=== PATIENT | female | born 1950 | race Caucasian/White ===

== ENCOUNTER → 2017-07-10 | Outpatient (CLI) | payer OTHER ==
[2017-07-10 15:41] LABS: Blood Urea Nitrogen 9 mg/dL (7-17)
--- NOTE | 2017-07-12 14:08 | MR ---
MR liver with and without contrast HISTORY: K 74.60, unspecified cirrhosis of liver Multiplanar multisequence and postcontrast images obtained through the liver following 7.5 cc Gadavis t IV. Correlation to ultrasound liver 02/16/2016 There is motion on the exam. The liver shows a nodular contour. There is mild heterogeneity of enhancement within the liver. Focus of increased enhancement present within the segment IVb washes out on more delayed images and measur es approximately 0.9 cm in size seen on axial image 71 of series 601. Anterior left lobe lesion on ax ial image 84 is subcentimeter and show some questionable washout, there is associated hyperintensity and T2-weighted sequences. Additional focus seen on axial image 96 measuring 6 to 7 mm on series 601 shows suspected washout on delayed images. Subcentimeter foci of decreased enhancement within the alba er are scattered within the liver. Veins and portal veins are patent. Extensive varices are present at the level of the gastroesophageal junction, upper abdomen posterior to the pancreas and anterior to the spleen and left kidney. There is minimal ascites. The gallbladder is contracted. IMPRESSION: 3 separate foci described above could be indicative of hepatocellular carcinoma are subce ntimeter in size. Findings compatible with cirrhosis, regenerating nodules within the liver. Suspect underlying portal hypertension. This case received internal peer review.
== END | disposition home or self-care (01) ==
LOC: RADMRIMAIN 15:10
PROVIDERS: ATTEND Internal Medicine Gastroenterology
DX: K74.60 Unspecified cirrhosis of liver (principal); Z01.812 Encounter for preprocedural laboratory examination
CPT/HCPCS: 82565; 84520; 74183; 36415; A9581

== ENCOUNTER → 2017-07-20 | Outpatient (CLI) | payer OTHER ==
[2017-07-20 14:39] LABS: HCT 36.4 % (34.0-46.0); Hypochromasia Slight; MCH 39.4 pg (25.0-35.0); MCV 119.3 fL (80.0-100.0); Macrocytosis Marked; Platelet Count 101 k/uL (150-450); RBC 3.05 m/uL (3.80-5.40); RDW 15.5 % (11.5-15.5); WBC 5.3 k/uL (3.8-10.6)
[2017-07-20 14:49] LABS: ALT 50 U/L (9-52); AST 87 U/L (14-36); Albumin 2.7 g/dL (3.5-5.0); Alkaline Phosphatase 222 U/L (38-126); Anion Gap 9 mmol/L; Bilirubin, Conjugated 0.2 mg/dL (0.0-0.3); Bilirubin, Delta 1.7 mg/dL (0.0-0.2); Bilirubin,Unconjugated 2.5 mg/dL (0.0-1.1); Blood Urea Nitrogen 9 mg/dL (7-17); Carbon Dioxide 27 mmol/L (22-30); Chloride 101 mmol/L (98-107); Glucose 100 mg/dL (74-99); Potassium 4.4 mmol/L (3.5-5.1); Sodium 137 mmol/L (137-145); Total Bilirubin 4.4 mg/dL (0.2-1.3); Total Protein 6.8 g/dL (6.3-8.2)
[2017-07-20 19:35] LABS: Iron Saturation 64.05 (12.00-45.00)
[2017-07-20 19:44] LABS: Alpha Fetoprotein, Tumor Mkr 9.2 ng/mL (0.0-7.9)
[2017-07-20 21:04] LABS: Hepatitis A Antibody IgM Non-Reactive (Non-Reactive); Hepatitis B Core IgM Non-Reactive (Non-Reactive)
== END | disposition home or self-care (01) ==
LOC: LABWHC1 13:56
PROVIDERS: ATTEND Physician Assistant
DX: F44.89 Other dissociative and conversion disorders (principal); K74.60 Unspecified cirrhosis of liver; R18.8 Other ascites
CPT/HCPCS: 36415; 80053; 80074; 82105; 82140; 82248; 82728; 83516; 83540; 83550; 85027; 86038

== ENCOUNTER 2017-08-15 08:33 | Day surgery (SDC) | payer MEDICARE, OTHER ==
[2017-08-14 11:33] VITALS: BMI 28.3
[~2017-08-15 08:33] MED LIST: LIDOCAINE 1% 20 ML VIAL (10MG/ML) FOR IV START INTRADERMA PRN; MIDAZOLAM 2 MG/2 ML VIAL IV PRN
[2017-08-15] MEDS ORDERED: LIDOCAINE 1% 20 ML VIAL (10MG/ML) FOR IV START IV ONE (09:05)
[2017-08-15] MEDS: LACTATED RINGERS 1,000 ML IV SCH ×2 (09:05→09:46)
[2017-08-15 09:06] VITALS: TEMP 97
[2017-08-15] MEDS ORDERED: GLYCOPYRROLATE 0.2 MG/ML 2 ML VIAL ONE (09:46)
[2017-08-15] MEDS ORDERED: LIDOCAINE 1% INJ 10MG/ML (20 ML MDV) ONE (09:46)
[2017-08-15] MEDS ORDERED: PROPOFOL 10 MG/ML 20 ML VIAL IV ONE (09:46)
--- NOTE | 2017-08-15 10:26 | P.PCN ---
Date of Procedure: 08/15/17 Procedure(s) Performed: Procedure: 1. Esophagogastroduodenoscopy. 2. Total colonoscopy. Preoperative diagnosis: Cirrhosis of the liver and family history of colon cancer. Postoperative diagnosis: 1. Small distal esophageal varices, small gastric varices and portal gastropathy with no evidence of bleeding or stigmata of prior bleeding. 2. Normal colon exam. Preparation: HalfLytely prep. Sedation: Was provided by anesthesia. Brief clinical history: The patient is a 67-year-old female who was evaluated in the office last month because of history of alcoholic cirrhosis of the liver. There is family history of colon cancer in her mother and she had a prior colonoscopy more than 20 years ago. No prior upper endoscopy. This evaluation is to assess for esophageal varices and colon neoplasia. Procedure: With the patient on her left lateral decubitus position and after informed consent and adequate sedation, I passed the Olympus-GIF 160 video upper endoscope through the cricopharyngeus down the esophagus. The distal esophagus showed 2 small columns of varices without stigmata of bleeding. There was no evidence of esophagitis or complicated reflux disease. The endoscope was then passed into the stomach which was insufflated with air and inspected in detail including the retroflex view in the cardia. There was prominent submucosal vessels in the cardia consistent with small-sized gastric varices with no stigmata of prior bleeding. The stomach showed diffuse evidence of portal gastropathy with mottling and erythema of the mucosa but no erosions, ulcers or bleeding. Pyloric channel, duodenal bulb, post bulbar area and descending duodenum appeared within normal limits. No biopsies or any banding of varices were indicated then the endoscope was withdrawn and I proceeded with the colonoscopy. Perianal area did not show any fissures or fistulas. There were no masses felt on digital rectal examination. The Olympus CFQ 160L video colonoscope was then inserted in the rectum in the usual fashion and advanced to the cecum. The mucosa appeared healthy. No polyps or tumors were seen or any obvious diverticular disease or bleeding. The patient tolerated the procedure well. Plan: The patient was reassured. Will plan to repeat her upper endoscopy in 2- 3 years and a colonoscopy in around 5 years. She is scheduled to be evaluated in consultation at a liver transplant center. We would keep you updated on her progress.
[2017-08-15 10:49] VITALS: BP 115/65; PULSE 86; RESP 18
== END 2017-08-15 10:56 | disposition home or self-care (01) ==
LOC: ORWHC2ENDO 08:33
DX: Z12.11 Encounter for screening for malignant neoplasm of colon (principal); K74.60 Unspecified cirrhosis of liver; I85.10 Secondary esophageal varices without bleeding; I86.4 Gastric varices; K31.9 Disease of stomach and duodenum, unspecified; Z80.0 Family history of malignant neoplasm of digestive organs; K21.9 Gastro-esophageal reflux disease without esophagitis; F17.210 Nicotine dependence, cigarettes, uncomplicated; Z79.899 Other long term (current) drug therapy
CPT/HCPCS: 43235; J2001; J2704; G0105

== ENCOUNTER 2017-10-05 08:16 | Inpatient (IN) | payer MEDICARE, OTHER ==
[2017-10-05] MEDS ORDERED: PANTOPRAZOLE 40 MG/10 ML VIAL IVP STA (08:21)
[2017-10-05] MEDS ORDERED: SODIUM CHLORIDE 0.9% 1,000 ML IV STA (08:21)
--- NOTE | 2017-10-05 08:29 | ED ---
GI Bleed HPI - General Stated complaint: vomiting blood Time Seen by Provider: 10/05/17 08:16 Source: patient, EMS, RN notes reviewed, old records reviewed - History of Present Illness Initial comments: This is a 67-year-old female history of cirrhosis from alcoholism who does currently smoke and did apparently have a recent outpatient evaluation for GI bleeding who started having nausea vomiting last night with reported coffee- ground emesis and this morning bright red blood in her emesis. She complains of some epigastric pain she had nausea that did resolve after IV Zofran given per paramedics. She complains of some weakness no chest pain she had some slight shortness of breath with it she denies any blood per rectum. No other modifying factors this time. She states she has not drank alcohol in a long time and has lately only smokes about one cigarette per day. MD complaint: coffee ground emesis, gross hematemesis - Related Data Home Medications Medication Instructions Recorded Confirmed Furosemide [Lasix] 20 mg PO BID 08/14/17 10/05/17 Multivitamins, Thera [Multivitamin 1 tab PO DAILY 08/14/17 10/05/17 (formulary)] Spironolactone [Aldactone] 25 mg PO BID 08/14/17 10/05/17 Lactulose 10 gm PO DAILY 10/05/17 10/05/17 Allergies Allergy/AdvReac Type Severity Reaction Status Date / Time No Known Allergies Allergy Verified 10/05/17 09:46 Review of Systems ROS Statement: Those systems with pertinent positive or pertinent negative responses have been documented in the HPI. ROS Other: All systems not noted in ROS Statement are negative. Past Medical History Past Medical History: GERD/Reflux, Liver Disease Additional Past Medical History / Comment(s): liver cirrhosis History of Any Multi-Drug Resistant Organisms: None Reported Past Surgical History: Hysterectomy Additional Past Surgical History / Comment(s): lasik proc caitlyn eyes Past Anesthesia/Blood Transfusion Reactions: Motion Sickness Additional Past Anesthesia/Blood Transfusion Reaction / Comment(s): vertigo Smoking Status: Current every day smoker - Past Family History Mother Family Medical History: Cancer General Exam - General Exam Comments Initial Comments: Is a well-developed well-nourished pale appearing female who is awake alert oriented 3 General appearance: alert, anxious Head exam: Present: atraumatic, normocephalic, normal inspection Eye exam: Present: normal appearance, PERRL, EOMI. Absent: scleral icterus, conjunctival injection, periorbital swelling ENT exam: Present: other (Some dark colored blood noted in the oral pharynx no definite evidence of nasal bleeding.) Neck exam: Present: normal inspection. Absent: tenderness, meningismus, lymphadenopathy Respiratory exam: Present: decreased breath sounds. Absent: respiratory distress, wheezes, rales, rhonchi, stridor Cardiovascular Exam: Present: normal rhythm, tachycardia, normal heart sounds. Absent: systolic murmur, diastolic murmur, rubs, gallop, clicks GI/Abdominal exam: Present: soft, tenderness (Mild epigastric tenderness palpation with some xiphoid tenderness no guarding or rebound), normal bowel sounds. Absent: distended, guarding, rebound, rigid Rectal exam: Present: normal rectal tone, black stool. Absent: hemorrhoids, mass, tenderness Extremities exam: Present: normal inspection, full ROM, normal capillary refill. Absent: tenderness, pedal edema, joint swelling, calf tenderness Back exam: Present: normal inspection Neurological exam: Present: alert, oriented X3, CN II-XII intact Psychiatric exam: Present: normal affect, anxious Skin exam: Present: warm, dry, intact, pallor. Absent: rash Course Vital Signs 10/05/17 10/05/17 10/05/17 08:24 08:53 09:52 Temperature 98.1 F Pulse Rate 105 H 104 H 106 H Respiratory 18 16 16 Rate Blood Pressure 144/68 137/67 144/104 O2 Sat by Pulse 97 97 97 Oximetry - Reevaluation(s) Reevaluation #1: 10/05/17 08:46 Patient did vomit some dark red blood with some clots. Rectal exam was performed with a female nurse, Swetha serrato. Reevaluation #2: 10/05/17 10:00 The patient has had more liquid black stool and did have an episode of vomiting dark blood with clots small amount of bright red material noted. Additionally further information sheet from the patient daughter's the nausea vomiting and she started 4 days ago. There was some question of exposure to Salmonella from some crackers from a local [employer] store. Medical Decision Making - Lab Data Result diagrams: 10/05/17 08:29 10/05/17 08:29 Lab Results 10/05/17 10/05/1710/05/18 Range/Units 08:29 08:29 08:29 WBC 12.8 H (3.8-10.6) k/uL RBC 2.54 L (3.80-5.40) m/uL Hgb 10.1 L (11.4-16.0) gm/dL Hct 31.0 L (34.0-46.0) % MCV 122.4 H (80.0-100.0) fL MCH 39.7 H (25.0-35.0) pg MCHC 32.5 (31.0-37.0) g/dL RDW 16.5 H (11.5-15.5) % Plt Count 112 L (150-450) k/uL Neutrophils % 85 % Lymphocytes % 7 % Monocytes % 7 % Eosinophils % 0 % Basophils % 0 % Neutrophils # 10.9 H (1.3-7.7) k/uL Lymphocytes # 0.9 L (1.0-4.8) k/uL Monocytes # 0.8 (0-1.0) k/uL Eosinophils # 0.0 (0-0.7) k/uL Basophils # 0.0 (0-0.2) k/uL Manual Slide Review Performed Hypochromasia Moderate Anisocytosis Slight Macrocytosis Marked PT (9.0-12.0) sec INR (<1.2) APTT (22.0-30.0) sec Sodium (137-145) mmol/L Potassium (3.5-5.1) mmol/L Chloride (98-107) mmol/L Carbon Dioxide (22-30) mmol/L Anion Gap mmol/L BUN (7-17) mg/dL Creatinine (0.52-1.04) mg/dL Est GFR (CKD-EPI)AfAm (>60 ml/min/1.73 sqM) Est GFR (CKD-EPI)NonAf (>60 ml/min/1.73 sqM) Glucose (74-99) mg/dL Calcium (8.4-10.2) mg/dL Magnesium (1.6-2.3) mg/dL Total Bilirubin (0.2-1.3) mg/dL AST (14-36) U/L ALT (9-52) U/L Alkaline Phosphatase (38-126) U/L Ammonia 69 H (<30) umol/L Total Creatine Kinase 142 H (30-135) U/L CK-MB (CK-2) 1.3 (0.0-2.4) ng/mL CK-MB (CK-2) Rel Index 0.9 Troponin I <0.012 (0.000-0.034) ng/mL Total Protein (6.3-8.2) g/dL Albumin (3.5-5.0) g/dL Lipase (23-300) U/L Stool Occult Blood (Negative) Blood Type Blood Type Recheck Antibody Screen Spec Expiration Date 10/05/17 10/05/17 10/05/17 Range/Units 08:29 08:29 08:29 WBC (3.8-10.6) k/uL RBC (3.80-5.40) m/uL Hgb (11.4-16.0) gm/dL Hct (34.0-46.0) % MCV (80.0-100.0) fL MCH (25.0-35.0) pg MCHC (31.0-37.0) g/dL RDW (11.5-15.5) % Plt Count (150-450) k/uL Neutrophils % % Lymphocytes % % Monocytes % % Eosinophils % % Basophils % % Neutrophils # (1.3-7.7) k/uL Lymphocytes # (1.0-4.8) k/uL Monocytes # (0-1.0) k/uL Eosinophils # (0-0.7) k/uL Basophils # (0-0.2) k/uL Manual Slide Review Hypochromasia Anisocytosis Macrocytosis PT 19.0 H (9.0-12.0) sec INR 2.1 H (<1.2) APTT 30.8 H (22.0-30.0) sec Sodium 140 (137-145) mmol/L Potassium 4.6 (3.5-5.1) mmol/L Chloride 110 H (98-107) mmol/L Carbon Dioxide 21 L (22-30) mmol/L Anion Gap 9 mmol/L BUN 22 H (7-17) mg/dL Creatinine 0.57 (0.52-1.04) mg/dL Est GFR (CKD-EPI)AfAm >90 (>60 ml/min/1.73 sqM) Est GFR (CKD-EPI)NonAf >90 (>60 ml/min/1.73 sqM) Glucose 119 H (74-99) mg/dL Calcium 7.9 L (8.4-10.2) mg/dL Magnesium 1.8 (1.6-2.3) mg/dL Total Bilirubin 5.7 H (0.2-1.3) mg/dL AST 61 H (14-36) U/L ALT 40 (9-52) U/L Alkaline Phosphatase 125 (38-126) U/L Ammonia (<30) umol/L Total Creatine Kinase (30-135) U/L CK-MB (CK-2) (0.0-2.4) ng/mL CK-MB (CK-2) Rel Index Troponin I (0.000-0.034) ng/mL Total Protein 5.6 L (6.3-8.2) g/dL Albumin 2.2 L (3.5-5.0) g/dL Lipase 64 (23-300) U/L Stool Occult Blood (Negative) Blood Type A Positive Blood Type Recheck CABO Indicated Antibody Screen NEGATIVE Spec Expiration Date 10/08/2017 - 232810/05/17 Range/Units 08:34 WBC (3.8-10.6) k/uL RBC (3.80-5.40) m/uL Hgb (11.4-16.0) gm/dL Hct (34.0-46.0) % MCV (80.0-100.0) fL MCH (25.0-35.0) pg MCHC (31.0-37.0) g/dL RDW (11.5-15.5) % Plt Count (150-450) k/uL Neutrophils % % Lymphocytes % % Monocytes % % Eosinophils % % Basophils % % Neutrophils # (1.3-7.7) k/uL Lymphocytes # (1.0-4.8) k/uL Monocytes # (0-1.0) k/uL Eosinophils # (0-0.7) k/uL Basophils # (0-0.2) k/uL Manual Slide Review Hypochromasia Anisocytosis Macrocytosis PT (9.0-12.0) sec INR (<1.2) APTT (22.0-30.0) sec Sodium (137-145) mmol/L Potassium (3.5-5.1) mmol/L Chloride (98-107) mmol/L Carbon Dioxide (22-30) mmol/L Anion Gap mmol/L BUN (7-17) mg/dL Creatinine (0.52-1.04) mg/dL Est GFR (CKD-EPI)AfAm (>60 ml/min/1.73 sqM) Est GFR (CKD-EPI)NonAf (>60 ml/min/1.73 sqM) Glucose (74-99) mg/dL Calcium (8.4-10.2) mg/dL Magnesium (1.6-2.3) mg/dL Total Bilirubin (0.2-1.3) mg/dL AST (14-36) U/L ALT (9-52) U/L Alkaline Phosphatase (38-126) U/L Ammonia (<30) umol/L Total Creatine Kinase (30-135) U/L CK-MB (CK-2) (0.0-2.4) ng/mL CK-MB (CK-2) Rel Index Troponin I (0.000-0.034) ng/mL Total Protein (6.3-8.2) g/dL Albumin (3.5-5.0) g/dL Lipase (23-300) U/L Stool Occult Blood Positive H (Negative) Blood Type Blood Type Recheck Antibody Screen Spec Expiration Date - EKG Data -: EKG Interpreted by Me EKG shows normal: sinus rhythm (Sinus tachycardia rate of 105. A full 140 QRS duration 82 QT since QTC 374/[address] T-wave configuration) Critical Care Time Critical Care Time: Yes Critical Care Time: 43 minutes of critical care time which includes initial presentation and monitoring of the EMS run as well as discussed with paramedics. History physical labs x-rays multiple re-evaluations the patient. Review of old charting including EGD and colonoscopy report. Discussion with Dr. Herring, Dr. Kelley, and Dr. Fernández. I also had extensive conversation with the patient's daughters. Disposition Clinical Impression: Acute upper GI bleed, Melena, Anemia, Cirrhosis of liver, Serum ammonia increased Disposition: ADMITTED IP TO THIS HOSP Condition: Serious Referrals: Liliana Reynolds MD [Primary Care Provider] - 1-2 days
[2017-10-05] MEDS ORDERED: ONDANSETRON 4 MG/2 ML VIAL IVP STA (08:37)
[2017-10-05 08:49] LABS: Anisocytosis Slight; Basophils % (A) 0 %; Eosinophils % (A) 0 %; HGB 10.1 gm/dL (11.4-16.0); Hypochromasia Moderate; Lymphocytes # (A) 0.9 k/uL (1.0-4.8); Lymphocytes % (A) 7 %; MCH 39.7 pg (25.0-35.0); MCHC 32.5 g/dL (31.0-37.0); MCV 122.4 fL (80.0-100.0); Macrocytosis Marked; Mean Platelet Volume 8.1; Monocytes # (A) 0.8 k/uL (0-1.0); Monocytes % (A) 7 %; Neutrophils # (A) 10.9 k/uL (1.3-7.7); Neutrophils % (A) 85 %; Platelet Count 112 k/uL (150-450); RBC 2.54 m/uL (3.80-5.40); RDW 16.5 % (11.5-15.5); WBC 12.8 k/uL (3.8-10.6)
[2017-10-05 09:00] LABS: INR 2.1 (<1.2); Partial Thromboplastin Time 30.8 sec (22.0-30.0)
[2017-10-05 09:05] LABS: ALT 40 U/L (9-52); AST 61 U/L (14-36); Albumin 2.2 g/dL (3.5-5.0); Alkaline Phosphatase 125 U/L (38-126); Anion Gap 9 mmol/L; Blood Urea Nitrogen 22 mg/dL (7-17); Calcium 7.9 mg/dL (8.4-10.2); Carbon Dioxide 21 mmol/L (22-30); Chloride 110 mmol/L (98-107); Glucose 119 mg/dL (74-99); Lipase 64 U/L (23-300); Magnesium 1.8 mg/dL (1.6-2.3); Potassium 4.6 mmol/L (3.5-5.1); Sodium 140 mmol/L (137-145); Total Bilirubin 5.7 mg/dL (0.2-1.3); Total Protein 5.6 g/dL (6.3-8.2)
[2017-10-05 09:12] LABS: Creatine Kinase 142 U/L (30-135)
--- NOTE | 2017-10-05 09:21 | XR ---
EXAMINATION TYPE: XR chest 1V portable DATE OF EXAM: 10/05/2017 COMPARISON: NONE HISTORY: Chest pain and hemoptysis. TECHNIQUE: Single frontal view of the chest is obtained. FINDINGS: Overlying EKG leads are seen There is no focal air space opacity, pleural effusion, or pneu mothorax seen. There is roughly 9 mm nodule right midlung suprahilar level projecting between the pos terior fifth and sixth ribs. The cardiac silhouette size is within normal limits. The osseous struc tures are intact. IMPRESSION: No suspicious acute pulmonary process. Advise correlation with old outside chest x-ray, consider nonemergent CT to further evaluate right midlung nodule based on correlation.
--- NOTE | 2017-10-05 09:22 | XR ---
EXAMINATION TYPE: XR abdomen 1V DATE OF EXAM: 10/05/2017 9:07 AM CLINICAL HISTORY: Hematemesis TECHNIQUE: Single upright image of the abdomen is obtained. COMPARISON: None. FINDINGS: Scattered gas is seen in non-distended small bowel loops. Gas and fecal material is seen in non-distended colon. There is no visceromegaly, pneumoperitoneum, or abnormal calcification apprecia vianey. The lung bases are clear and the osseous structures are intact. Incidentally noted there are 6 l umbar type vertebral bodies. Mild to moderate degenerative changes of the spine and femoral acetabula r joints are present. IMPRESSION: Nonobstructive bowel gas pattern.
[2017-10-05 09:25] LABS: Creatine Kinase MB 1.3 ng/mL (0.0-2.4); Troponin I <0.012 ng/mL (0.000-0.034)
[2017-10-05] MEDS ORDERED: NALOXONE 0.4 MG/ML 1 ML VIAL IV PRN (10:03)
[2017-10-05] MEDS ORDERED: MORPHINE SULFATE 4 MG/ML SYRINGE IV PRN (10:03)
[2017-10-05] MEDS ORDERED: DEXTROSE 5%-0.45% NACL 1,000 ML IV SCH (10:15)
--- NOTE | 2017-10-05 11:25 | P.CONS ---
History of Present Illness - Reason for Consult Consult date: 10/05/17 GI bleed Requesting physician: Sotero Herring - History of Present Illness 67-year-old female with a history of alcohol liver disease, esophageal gastric varices, portal gastropathy, portal hypertension, ascites, hepatic encephalopathy, presents with acute coffee-ground emesis and melena. Patient started to vomit last night multiple episodes of coffee-ground emesis and passed a black colored bowel movement this morning. History was obtained from patient and friend at bedside. Patient vehemently denies active drinking her serum alcohol level was less than 10 upon admission. Last alcohol drink was April 2017. She was recently evaluated in the GI office a few months ago in regards to have mildly elevated alpha-fetoprotein level 9.2 and abnormal liver MRI. MRI liver 07/10/2017 reported 3 separate foci within the liver possible hepatic cellular carcinoma with minimal ascites and GE junction varices. She underwent EGD colonoscopy July 2017 with findings of small distal esophageal varices, small gastric varices, portal gastropathy and a normal colon. Esophageal banding was not performed. Serologic workup for chronic liver disease has been completed most recently SMA slightly elevated at 30 but ESA and AMA negative. Ferritin 551. Iron 155. TIBC 242 and iron saturation 64%. Hepatitis screen nonreactive. Serum ammonia in June was 59 maintained on lactulose 10 g twice daily to titrate 3-4 bowel movements daily. She has been referred to [facility] hepatobiliary clinic and [facility] results are not available at time of dictation. Liver function tests have been elevated in the outpatient setting in June 2017 total bilirubin was 4.4. AST 87. ALT 50. AP 222. Hemoglobin 12 range. Admission chemistries: Hemoglobin 10.1. White count 12.8. MCV 122. Platelet 122. INR 2.1. Sodium 140. Potassium 4.6. BUN 22. Creatinine 0.5. Total bilirubin 5.7. AST 61. ALT 40. AP 125. Ammonia 69. Lipase 64. Presently she is resting in the emergency center denies abdominal pain. She is alert and oriented 3. Denies fevers. Blood pressure normotensive. Heart rate low 100s. Afebrile. Review of Systems Constitutional: Denies fever, chills, sweats, weight gain, or loss. HEENT: Negative for migraines, blurred vision or loss, earaches, drainage, tinnitus, oral mucosal lesions, dysphagia, or odynophagia. CARDIAC: Negative for chest pain, arrhythmias, or palpitation. RESPIRATORY: Negative for shortness of breath, hemoptysis, cough, or sputum production. GI: See HPI for pertinent findings. : Negative for hematuria, urgency, frequency, polyuria, or dysuria. GYNc: Denies possibility of . Negative vaginal discharge. MUSCULOSKELETAL: Negative for muscle aches, swelling, arthritis, and arthralgias. NEUROLOGIC: Negative for stroke or TIA. ENDOCRINE: Negative for thyroid problems. SKIN: Negative for rash or itching. PSYCHIATRIC: History of anxiety Past Medical History Past Medical History: GERD/Reflux, Liver Disease, Syncope Additional Past Medical History / Comment(s): Liver cirrhosis, ETOH abuse (last drank 04/2017), recent cat scan done at [facility] d/t possible small spots on liver, gastric varicies, small esophageal varicies, vertigo, syncope 10/04/17. History of Any Multi-Drug Resistant Organisms: None Reported Past Surgical History: Bladder Surgery, Hysterectomy Additional Past Surgical History / Comment(s): 08/15/17 EGD and colonoscopy, past EGD, bladder suspension, lasik proc caitlyn eyes Past Anesthesia/Blood Transfusion Reactions: Motion Sickness Additional Past Anesthesia/Blood Transfusion Reaction / Comm: vertigo Smoking Status: Light tobacco smoker - Past Family History Mother Family Medical History: Cancer Additional Family Medical History / Comment(s): Mother had colon cancer. Father History Unknown: Yes Medications and Allergies Home Medications Medication Instructions Recorded Confirmed Type Furosemide [Lasix] 20 mg PO BID 08/14/17 10/05/17 History Multivitamins, Thera [Multivitamin 1 tab PO DAILY 08/14/17 10/05/17 History (formulary)] Spironolactone [Aldactone] 25 mg PO BID 08/14/17 10/05/17 History Lactulose 10 gm PO DAILY 10/05/17 10/05/17 History Allergies Allergy/AdvReac Type Severity Reaction Status Date / Time No Known Allergies Allergy Verified 10/05/17 09:46 Physical Exam Vitals: Vital Signs Temp Pulse Resp BP Pulse Ox 10/05/17 10:27 102 H 16 136/60 97 10/05/17 09:52 106 H 16 144/104 97 10/05/17 08:53 104 H 16 137/67 97 10/05/17 08:24 98.1 F 105 H 18 144/68 97 Intake and Output 10/04/17 10/05/17 10/05/17 22:59 06:59 14:59 Other: Weight 76.204 kg Overall appearance appears slightly jaundice - Constitutional General appearance: average body habitus - EENT Sclera icterus Eyes: normal appearance ENT: normal oropharynx Ears: bilateral: normal - Neck Neck: normal ROM - Respiratory Respiratory: bilateral: CTA - Cardiovascular Heart sounds: abnormal: S1 - Gastrointestinal Nontender. No appreciable ascites. General gastrointestinal: soft - Integumentary Integumentary: normal - Psychiatric Psychiatric: A&O x's 3 Results CBC & Chem 7: 10/05/17 08:29 10/05/17 08:29 Labs: Abnormal Lab Results - Last 24 Hours (Table) 10/05/17 10/05/17 10/05/17 Range/Units 08:29 08:29 08:29 WBC 12.8 H (3.8-10.6) k/uL RBC 2.54 L (3.80-5.40) m/uL Hgb 10.1 L (11.4-16.0) gm/dL Hct 31.0 L (34.0-46.0) % MCV 122.4 H (80.0-100.0) fL MCH 39.7 H (25.0-35.0) pg RDW 16.5 H (11.5-15.5) % Plt Count 112 L (150-450) k/uL Neutrophils # 10.9 H (1.3-7.7) k/uL Lymphocytes # 0.9 L (1.0-4.8) k/uL PT (9.0-12.0) sec INR (<1.2) APTT (22.0-30.0) sec Chloride (98-107) mmol/L Carbon Dioxide (22-30) mmol/L BUN (7-17) mg/dL Glucose (74-99) mg/dL Calcium (8.4-10.2) mg/dL Total Bilirubin (0.2-1.3) mg/dL AST (14-36) U/L Ammonia 69 H (<30) umol/L Total Creatine Kinase 142 H (30-135) U/L Total Protein (6.3-8.2) g/dL Albumin (3.5-5.0) g/dL Stool Occult Blood (Negative) 10/05/17 10/05/17 10/05/17 Range/Units 08:29 08:29 08:34 WBC (3.8-10.6) k/uL RBC (3.80-5.40) m/uL Hgb (11.4-16.0) gm/dL Hct (34.0-46.0) % MCV (80.0-100.0) fL MCH (25.0-35.0) pg RDW (11.5-15.5) % Plt Count (150-450) k/uL Neutrophils # (1.3-7.7) k/uL Lymphocytes # (1.0-4.8) k/uL PT 19.0 H (9.0-12.0) sec INR 2.1 H (<1.2) APTT 30.8 H (22.0-30.0) sec Chloride 110 H (98-107) mmol/L Carbon Dioxide 21 L (22-30) mmol/L BUN 22 H (7-17) mg/dL Glucose 119 H (74-99) mg/dL Calcium 7.9 L (8.4-10.2) mg/dL Total Bilirubin 5.7 H (0.2-1.3) mg/dL AST 61 H (14-36) U/L Ammonia (<30) umol/L Total Creatine Kinase (30-135) U/L Total Protein 5.6 L (6.3-8.2) g/dL Albumin 2.2 L (3.5-5.0) g/dL Stool Occult Blood Positive H (Negative) Assessment and Plan (1) Acute upper GI bleed Narrative/Plan: Most likely a combination of portal gastropathy possible bleeding from distal esophageal varices gastric varices Current Visit: Yes Status: Acute Code(s): K92.2 - GASTROINTESTINAL HEMORRHAGE, UNSPECIFIED SNOMED Code(s): 30565355 (2) H/O ETOH abuse Current Visit: Yes Status: Acute Code(s): Z87.898 - PERSONAL HISTORY OF OTHER SPECIFIED CONDITIONS SNOMED Code(s): 225681913 (3) Portal hypertension Current Visit: Yes Status: Acute Code(s): K76.6 - PORTAL HYPERTENSION SNOMED Code(s): 57110394 (4) Portal hypertensive gastropathy Current Visit: Yes Status: Acute Code(s): K76.6 - PORTAL HYPERTENSION; K31.89 - OTHER DISEASES OF STOMACH AND DUODENUM SNOMED Code(s): 414538282 (5) Gastric varices Current Visit: Yes Status: Acute Code(s): I86.4 - GASTRIC VARICES SNOMED Code(s): 41965866 (6) Esophageal varices Current Visit: Yes Status: Acute Code(s): I85.00 - ESOPHAGEAL VARICES WITHOUT BLEEDING SNOMED Code(s): 92099500 (7) Anemia Current Visit: Yes Status: Acute Code(s): D64.9 - ANEMIA, UNSPECIFIED SNOMED Code(s): 606729860 (8) Acute blood loss anemia Current Visit: Yes Status: Acute Code(s): D62 - ACUTE POSTHEMORRHAGIC ANEMIA SNOMED Code(s): 519881932 (9) Coffee ground emesis Current Visit: Yes Status: Acute Code(s): K92.0 - HEMATEMESIS SNOMED Code( s): 471103015 (10) Melena Current Visit: Yes Status: Acute Code(s): K92.1 - MELENA SNOMED Code(s): 9495471 (11) Cirrhosis of liver Current Visit: Yes Status: Acute Code(s): K74.60 - UNSPECIFIED CIRRHOSIS OF LIVER SNOMED Code(s): 98097919 (12) Elevated AFP Current Visit: Yes Status: Acute Code(s): R77.2 - ABNORMALITY OF ALPHAFETOPROTEIN SNOMED Code(s): 221643679 (13) Elevated liver enzymes Narrative/Plan: Combination of decompensated alcohol liver disease and alcohol hepatitis Current Visit: Yes Status: Acute Code(s): R74.8 - ABNORMAL LEVELS OF OTHER SERUM ENZYMES SNOMED Code(s): 466474343 (14) Hepatic encephalopathy Current Visit: Yes Status: Acute Code(s): K72.90 - HEPATIC FAILURE, UNSPECIFIED WITHOUT COMA SNOMED Code(s): 53826278 (15) Jaundice, hepatocellular Current Visit: Yes Status: Acute Code(s): K76.89 - OTHER SPECIFIED DISEASES OF LIVER SNOMED Code(s): 63962357 (16) Abnormal MRI, liver Current Visit: Yes Status: Acute Code(s): R93.2 - ABNORMAL FINDINGS ON DX IMAGING OF LIVER AND BILIARY TRACT SNOMED Code(s): 386499454 Plan: 1. Nothing by mouth except medications. 2. Lactulose 20 g 3 times a day; serum ammonia daily. 3. Protonix 40 mg IV twice daily. 4. Sandostatin 25 mics IV; transfer to ICU for further monitoring. 5. CBC every 6 hours. Will obtain AFP. Daily CMP/PT INR. 6. Rocephin 1 g every 24HR; spontaneous bacterial peritonitis prophylaxis in the setting of a patient with known cirrhosis esophageal gastric varices with acute GI bleed. 7. Inpatient EGD discussed will be determined based on clinical course and correction of INR 1.5 or less. 8. Case was discussed with product manager service will defer to their management for vitamin K/FFP administration. 9. Presently being followed in the outpatient setting by [facility] hepatobiliary clinic. Thank you for this kind referral and the opportunity to participate in the care of your patient. This consultation was discussed with Dr. Fernández. The impression and plan of care have been directed as dictated.
[2017-10-05] MEDS: LACTULOSE 20 GM/30 ML CUP PO SCH ×2 (12:51→16:41)
[2017-10-05] MEDS: cefTRIAXone IN SWFI 1,000 MG/10 ML SYRINGE IVP SCH (12:54)
[2017-10-05] MEDS: OCTREOTIDE 200 MCG in SODIUM CHLORIDE 0.9% 100 ML IV SCH ×2 (12:55→19:44)
[2017-10-05] MEDS ORDERED: PHYTONADIONE 5 MG in SODIUM CHLORIDE 0.9% 50 ML IVPB STA (13:10)
[2017-10-05 13:47] LABS: Glucose,Whole Blood 134 mg/dL (75-99)
[2017-10-05 14:08] LABS: Anisocytosis Slight; Basophils % (A) 0 %; Eosinophils % (A) 0 %; HGB 9.6 gm/dL (11.4-16.0); Hypochromasia Moderate; Lymphocytes # (A) 1.1 k/uL (1.0-4.8); Lymphocytes % (A) 8 %; MCH 39.4 pg (25.0-35.0); MCHC 32.1 g/dL (31.0-37.0); MCV 122.5 fL (80.0-100.0); Macrocytosis Marked; Mean Platelet Volume 8.6; Monocytes % (A) 7 %; Neutrophils # (A) 12.9 k/uL (1.3-7.7); Neutrophils % (A) 85 %; Platelet Count 106 k/uL (150-450); RBC 2.45 m/uL (3.80-5.40); RDW 16.9 % (11.5-15.5); WBC 15.2 k/uL (3.8-10.6)
[2017-10-05 14:33] LABS: Target Cells Present
--- NOTE | 2017-10-05 14:38 | HP ---
HISTORY AND PHYSICAL CHIEF COMPLAINT: GI bleed. HISTORY OF PRESENT ILLNESS: This is a 67-year-old woman with a past medical history of liver cirrhosis, history of alcohol abuse, history of anxiety being followed by Dr. Reynolds in the outpatient setting, had an endoscopy in July this year by Dr. Fernández. Patient also had a family history of colon cancer. The EGD showed small distal esophageal varices, small gastric varices and portal gastropathy, no active bleeding, but currently last night the patient felt sick, patient felt nauseous and patient apparently passed out and found a lot of blood around her progressive of hematemesis. Patient also had multiple episodes subsequently and also had black stools also. Patient came to [facility] and admitted for further evaluation and treatment. The hemoglobin is 10.1 at this time. There is no history of any fever, rigors. No history of headache, loss of consciousness, seizures at this time. PAST MEDICAL HISTORY: History of GERD, history of cirrhosis of the liver, history of syncope, history of gastric and esophageal varices, bladder surgery, hysterectomy, history of anxiety. MEDICATIONS: Prior to admission include home medications are: 1. Aldactone 25 mg p.o. b.i.d. 2. Multivitamin 1 p.o. daily. 3. Lactulose 10 mg p.o. daily. 4. Lasix 20 mg p.o. b.i.d. ALLERGIES: None. FAMILY HISTORY: History of colon cancer in the mother. SOCIAL HISTORY: History of smoking. Previous alcohol as mentioned earlier. History of THC. REVIEW OF SYSTEMS: ENT: No diminished vision or hearing. CARDIOVASCULAR SYSTEM: No angina or palpitation. RESPIRATION: No cough. GI: As mentioned earlier. : No dysuria. NERVOUS SYSTEM: No numbness or weakness. ALLERGY/IMMUNOLOGY: No asthma or hayfever. MUSCULOSKELETAL: As mentioned earlier. HEMATOLOGY/ONCOLOGY: No history of anemia. ENDOCRINE: No history of diabetes or hypothyroidism. CONSTITUTIONAL: As mentioned earlier. DERMATOLOGY: Negative. RHEUMATOLOGY: Negative. PSYCHIATRY: As mentioned earlier. PHYSICAL EXAMINATION: Alert and oriented x3. Pulse is 102, blood pressure 133/60, respirations 16, temperature 98.1, pulse ox 97% on room air. HEENT: Conjunctivae normal. Oral mucosa moist. Neck is no jugular venous distention. No lymph node enlargement. CARDIOVASCULAR: S1, S2, muffled, no S3, no S4. RESPIRATORY: Breath sounds diminished in the bases, a few scattered rhonchi, no crackles. ABDOMEN: Soft, obese, nontender. No mass palpable. LEGS: No edema, no swelling. NERVOUS SYSTEM: Higher functions as mentioned earlier. Moves all 4 limbs. No focal motor or sensory deficits. LYMPHATICS: No lymph node enlargement of the neck or axillae. SKIN: No ulcer, rash, or bleeding. LABS: WBC is 12.8, hemoglobin is 10.1, platelets are 112. INR is 2.1. Total bilirubin is 5.7. Ammonia 69. ASSESSMENT: 1. Hematemesis with acute gastrointestinal bleed, upper gastrointestinal bleed, possibly from esophageal and portal varices. 2. Esophageal and gastric varices with portal gastroparesis with recent EGD. 3. Increased WBC. 4. Thrombocytopenia. 5. History of alcohol. 6. Coagulopathy secondary to chronic liver disease. 7. Hyperbilirubinemia, possible hepatitis, history of ETOH. 8. History of gastroesophageal reflux disease. 9. History of syncope. 10.History of bladder surgery. 11.History of hysterectomy. 12.History of anxiety. RECOMMENDATION AND DISCUSSION: In this 67-year-old woman who presented with multiple complex medical issues, will monitor the patient closely. Continue with the current management and symptomatic treatment. Will recommend admission to ICU and monitor closely and I would recommend 2 units of transfusion and continue to monitor. Otherwise, IV proton pump inhibitors and Gastroenterology consultation, consult Dr. Metcalf for ICU management for possible EGD. Vitamin K and monitor PT/INR closely. See orders for further details. Prognosis guarded because of multiple complex medical issues. Further recommendations to follow. Broad-spectrum IV antibiotics also will be initiated as well. MMODL / IJN: [id number] / CLAIR
[2017-10-05] MEDS ORDERED: ONDANSETRON 4 MG/2 ML VIAL IVP PRN (15:06)
--- NOTE | 2017-10-05 15:15 | P.CNPUL ---
History of Present Illness Consult date: 10/05/17 Chief complaint: Acute GI bleeding History of present illness: 67-year-old here patient with known history of alcoholic liver cirrhosis and portal hypertension and portal gastropathy and esophageal varices, presented to the hospital because of GI bleeding. The patient started having coffee-ground emesis and alone at home. She had multiple episodes of coffee-ground emesis and she was passing black tarry stools at home and subsequently the emesis became bright red. She had another emesis in the emergency department with another bowel movement. She is an alcoholic however she hasn't drank since April 2017. No abdominal distention. She is a bit lethargic yet she is awake and alert and she is following commands and answering questions and there is no signs of any significant hepatic encephalopathy for now. In the emergency department, the patient was found to have a hemoglobin of 10.1. She was coagulopathic with an INR of 2.1 with a PT of 19 and a PTT of 30.8. He was afebrile. She was normotensive. Based on her ongoing symptoms of GI bleed, the patient was started on octreotide and IV Protonix and the patient got moved to the intensive care unit. Currently she is hemodynamically stable on no pressors. Her follow-up hemoglobin showed a dropped down to 9.6. She has undergone previous EGD and colonoscopy in July 2017 and the patient was found to have small distal esophageal varices and small gastric varices and portal gastropathy. The colonoscopy was within normal limits. No is a 50 and bending was done. At the same time the patient has some abnormal densities within the liver. The patient has undergone previous MRI of the liver and the patient was found to have 3 separate foci within the liver possibly related to an underlying hepatocellular carcinoma. The patient was also found to have minimal ascites and GE junction varices. Note that the patient's ESA was negative, antimitochondrial antibody was negative, anti-smooth muscle antibody was 30. Hepatitis profile is negative. Review of Systems Constitutional: Reports fatigue, Reports lethargy Eyes: denies blurred vision, denies bulging eye, denies decreased vision Ears: deny: decreased hearing, ear discharge, earache, tinnitus Ears, nose, mouth and throat: Denies headache, Denies sore throat Cardiovascular: Reports dyspnea on exertion Respiratory: Reports dyspnea Gastrointestinal: Reports change in bowel habits, Reports coffee ground emesis, Reports jaundice, Reports melena, Reports nausea Genitourinary: Denies dysuria, Denies hematuria Musculoskeletal: Denies myalgias Musculoskeletal: bilateral: ankle swelling, absent: ankle pain, ankle stiffness Integumentary: Reports striae Neurological: Reports weakness Psychiatric: Denies anxiety, Denies depression Endocrine: Reports fatigue Hematologic/Lymphatic: Reports as per HPI Allergic/Immunologic: Reports as per HPI Past Medical History Past Medical History: GERD/Reflux, Liver Disease, Syncope Additional Past Medical History / Comment(s): Liver cirrhosis, ETOH abuse (last drank 04/2017), recent cat scan done at [facility] d/t possible small spots on liver, gastric varicies, small esophageal varicies, vertigo, syncope 10/04/17. History of Any Multi-Drug Resistant Organisms: None Reported Past Surgical History: Bladder Surgery, Hysterectomy Additional Past Surgical History / Comment(s): 08/15/17 EGD and colonoscopy, past EGD, bladder suspension, lasik proc caitlyn eyes Past Anesthesia/Blood Transfusion Reactions: Motion Sickness Additional Past Anesthesia/Blood Transfusion Reaction / Comment(s): vertigo Smoking Status: Light tobacco smoker - Past Family History Mother Family Medical History: Cancer Additional Family Medical History / Comment(s): Mother had colon cancer. Father History Unknown: Yes Medications and Allergies Home Medications Medication Instructions Recorded Confirmed Type Furosemide [Lasix] 20 mg PO BID 08/14/17 10/05/17 History Multivitamins, Thera [Multivitamin 1 tab PO DAILY 08/14/17 10/05/17 History (formulary)] Spironolactone [Aldactone] 25 mg PO BID 08/14/17 10/05/17 History Lactulose 10 gm PO DAILY 10/05/17 10/05/17 History Allergies Allergy/AdvReac Type Severity Reaction Status Date / Time No Known Allergies Allergy Verified 10/05/17 09:46 Physical Exam Vitals: Vital Signs Temp Pulse Resp BP Pulse Ox 10/05/17 13:02 115 H 16 106/56 97 10/05/17 10:27 102 H 16 136/60 97 10/05/17 09:52 106 H 16 144/104 97 10/05/17 08:53 104 H 16 137/67 97 10/05/17 08:24 98.1 F 105 H 18 144/68 97 Intake and Output 08/09/18 08/09/18 08/09/18 06:59 14:59 22:59 Other: Weight 76.204 kg Gen. appearance she is calm comfortable no acute distress. Head exam was generally normal. There was no scleral icterus or corneal arcus. Mucous membranes were moist. Neck was supple and without jugular venous distension, thyromegaly, or carotid bruits. Carotids were easily palpable bilaterally. There was no adenopathy. Lungs sounds are diminished bilaterally otherwise clear.Lungs were clear to auscultation and percussion, and with normal diaphragmatic excursion. No wheezes or rales were noted. Cardiac exam revealed the PMI to be normally situated and sized. The rhythm was regular and no extrasystoles were noted during several minutes of auscultation. The first and second heart sounds were normal and physiologic splitting of the second heart sound was noted. There were no murmurs, rubs, clicks, or gallops. Abdominal exam revealed normal bowel sounds. The abdomen was soft, non-tender, and without masses, organomegaly, or appreciable enlargement of the abdominal aorta. Examination of the extremities revealed easily palpable radial, femoral and pedal pulses. There was no cyanosis, clubbing and there is +1 pitting edema bilaterally Neurologically the patient is awake and alert. No signs of any hepatic encephalopathy at this point in time. She is following commands and answer precautions appropriately. Examination of the skin revealed no evidence of significant rashes, suspicious appearing nevi or other concerning lesions. Some rare facial telangiectasias can be seen. Results - Laboratory Findings CBC and BMP: 10/05/17 13:26 10/05/17 08:29 PT/INR, D-dimer PT 19.0 sec (9.0-12.0) H 10/05/17 08:29 INR 2.1 (<1.2) H 10/05/17 08:29 Abnormal lab findings: Abnormal Labs 10/05/17 10/05/17 10/05/17 08:29 08:29 08:29 WBC 12.8 H RBC 2.54 L Hgb 10.1 L Hct 31.0 L MCV 122.4 H MCH 39.7 H RDW 16.5 H Plt Count 112 L Neutrophils # 10.9 H Lymphocytes # 0.9 L PT INR APTT Chloride Carbon Dioxide BUN Glucose POC Glucose (mg/dL) Calcium Total Bilirubin AST Ammonia 69 H Total Creatine Kinase 142 H Total Protein Albumin Stool Occult Blood Crossmatch 10/05/17 10/05/17 10/05/17 08:29 08:29 08:29 WBC RBC Hgb Hct MCV MCH RDW Plt Count Neutrophils # Lymphocytes # PT 19.0 H INR 2.1 H APTT 30.8 H Chloride 110 H Carbon Dioxide 21 L BUN 22 H Glucose 119 H POC Glucose (mg/dL) Calcium 7.9 L Total Bilirubin 5.7 H AST 61 H Ammonia Total Creatine Kinase Total Protein 5.6 L Albumin 2.2 L Stool Occult Blood Crossmatch See Detail 10/05/17 10/05/17 10/05/17 08:34 13:26 13:44 WBC 15.2 H RBC 2.45 L Hgb 9.6 L Hct 30.0 L MCV 122.5 H MCH 39.4 H RDW 16.9 H Plt Count 106 L Neutrophils # 12.9 H Lymphocytes # PT INR APTT Chloride Carbon Dioxide BUN Glucose POC Glucose (mg/dL) 134 H Calcium Total Bilirubin AST Ammonia Total Creatine Kinase Total Protein Albumin Stool Occult Blood Positive H Crossmatch - Diagnostic Findings Chest x-ray: image reviewed Assessment and Plan Plan: Assessment 1 acute GI bleeding. The patient is likely having an upper GI bleed related to portal hypertension secondary to liver cirrhosis. Hemodynamically stable currently on a combination of a Protonix and IV Sandostatin. Hemoglobin is at 9.6. Coagulation profile is abnormal based on underlying history of liver cirrhosis. No fresh frozen was given and the patient was given only 15 mg of vitamin K. 2 liver cirrhosis, alcoholic in nature 3 portal hypertension secondary liver cirrhosis 4 portal hypertensive gastropathy along with history of esophageal varices without previous banding. Please refer to the most recent EGD that was done a few months back. 5 abnormal liver lesions with mild elevation in the alpha-fetoprotein. Rule out development of hepatocellular carcinoma 6 history of alcoholism 7 blood loss anemia and hemoglobin is down to 9.6 8 borderline thrombocytopenia 9 questionable nodular density in the right suprahilar area on the chest x-ray that is to be investigated later stage 10 smoker 11 jaundice secondary to above 12 hypoproteinemia secondary to above 13 lower extremity edema Plan Continue IV fluids wit D5 and assess at the rate of 75 mL an hour. Continue octreotide. Continue IV Protonix. Repeat hemoglobin. Recheck the PT/INR. Hold Lasix for now. Hold of the rectum. EGD probably within next 24-48 hours. Keep the patient nothing by mouth for now. Watch for any signs of hepatic encephalopathy. IV Rocephin for SBP prophylaxis. We'll continue to follow.
[2017-10-05] MEDS: PHYTONADIONE ORAL 5 MG/5 ML ORAL.SYRG PO SCH (16:16)
[2017-10-05] MEDS: DEXTROSE 5%-0.9% NACL 1,000 ML IV SCH (16:41)
[2017-10-05 20:03] LABS: Appearance,Urine Cloudy (Clear); Bilirubin,Urine Negative (Negative); Blood,Urine Small (Negative); Color,Urine Yellow; Glucose,Urine (UA) Negative (Negative); Ketones,Urine 1+ (Negative); Leukocyte Esterase,Urine Large (Negative); Mucus,Urine Rare /hpf; Nitrite,Urine Positive (Negative); Protein,Urine Trace (Negative); RBC,Urine 6 /hpf (0-5); Specific Gravity,Urine 1.018 (1.001-1.035); Squamous Epithelial Cell,Urine 4 /hpf (0-4); Urobilinogen,Urine <2.0 mg/dL (<2.0); WBC,Urine >182 /hpf (0-5)
[2017-10-05 20:22] LABS: Glucose,Whole Blood 178 mg/dL (75-99)
[2017-10-05] MEDS: PANTOPRAZOLE 40 MG/10 ML VIAL IV SCH (21:30)
[2017-10-05 23:39] LABS: Hemoglobin A1C 4.4 % (4.0-6.0)
[2017-10-06 00:04] LABS: Glucose,Whole Blood 155 mg/dL (75-99)
[2017-10-06 00:08] LABS: Anisocytosis Moderate; Basophils % (A) 0 %; Eosinophils # (A) 0.1 k/uL (0-0.7); Eosinophils % (A) 1 %; HCT 30.6 % (34.0-46.0); HGB 10.2 gm/dL (11.4-16.0); Hypochromasia Slight; Lymphocytes # (A) 2.3 k/uL (1.0-4.8); Lymphocytes % (A) 13 %; MCH 36.1 pg (25.0-35.0); MCHC 33.5 g/dL (31.0-37.0); Macrocytosis Marked; Mean Platelet Volume 8.3; Monocytes # (A) 1.5 k/uL (0-1.0); Monocytes % (A) 8 %; Neutrophils # (A) 13.9 k/uL (1.3-7.7); Neutrophils % (A) 76 %; RBC 2.83 m/uL (3.80-5.40); RDW 22.6 % (11.5-15.5); WBC 18.2 k/uL (3.8-10.6)
[2017-10-06] MEDS: LACTULOSE 20 GM/30 ML CUP PO SCH ×5 (00:14→22:12)
[2017-10-06 00:18] LABS: MCV 107.9 fL (80.0-100.0)
[2017-10-06 00:40] LABS: Platelet Count 93 k/uL (150-450); Poikilocytosis (M) Present; Target Cells Present
[2017-10-06] MEDS: INSULIN ASPART 100 UNIT/ML 1 ML 10 ML VIAL SQ SCH ×5 (02:30→20:47)
[2017-10-06] MEDS: DEXTROSE 5%-0.9% NACL 1,000 ML IV SCH ×2 (04:46→18:48)
[2017-10-06] MEDS: OCTREOTIDE 200 MCG in SODIUM CHLORIDE 0.9% 100 ML IV SCH ×2 (04:46→16:45)
[2017-10-06 04:57] LABS: Anisocytosis Moderate; HCT 32.4 % (34.0-46.0); HGB 10.4 gm/dL (11.4-16.0); MCH 35.6 pg (25.0-35.0); MCHC 32.2 g/dL (31.0-37.0); MCV 110.6 fL (80.0-100.0); Macrocytosis Marked; Mean Platelet Volume 8.3; RBC 2.93 m/uL (3.80-5.40); RDW 23.3 % (11.5-15.5); WBC 20.1 k/uL (3.8-10.6)
[2017-10-06 05:01] LABS: INR 1.8 (<1.2); Prothrombin Time 16.7 sec (9.0-12.0)
[2017-10-06 05:11] LABS: ALT 44 U/L (9-52); AST 69 U/L (14-36); Alkaline Phosphatase 110 U/L (38-126); Anion Gap 4 mmol/L; Blood Urea Nitrogen 26 mg/dL (7-17); Calcium 7.6 mg/dL (8.4-10.2); Carbon Dioxide 27 mmol/L (22-30); Chloride 109 mmol/L (98-107); Glucose 112 mg/dL (74-99); Potassium 4.1 mmol/L (3.5-5.1); Sodium 140 mmol/L (137-145); Total Bilirubin 5.1 mg/dL (0.2-1.3); Total Protein 5.2 g/dL (6.3-8.2)
[2017-10-06 05:27] LABS: Band Neutrophils % 1 %; Lymphocytes # (M) 3.82 k/uL (1.0-4.8); Monocytes # (M) 2.01 k/uL (0-1.0); Neutrophils % (M) 69 %; Nucleated Red Blood Cells 0 /100 WBC (0-0); Total Cells Counted 100
[2017-10-06 05:28] LABS: Platelet Count 94 k/uL (150-450); Poikilocytosis (M) Present; Polychromasia Present; Target Cells Present
[2017-10-06 08:05] LABS: Glucose,Whole Blood 117 mg/dL (75-99)
[2017-10-06] MEDS: cefTRIAXone IN SWFI 1,000 MG/10 ML SYRINGE IVP SCH (08:16)
[2017-10-06] MEDS: PANTOPRAZOLE 40 MG/10 ML VIAL IV SCH ×2 (08:16→20:47)
[2017-10-06] MEDS: PHYTONADIONE ORAL 5 MG/5 ML ORAL.SYRG PO SCH (09:02)
--- NOTE | 2017-10-06 09:16 | P.PN ---
Subjective Progress Note Date: 10/06/17 Principal diagnosis: Acute GI bleed 67-year-old here patient with known history of alcoholic liver cirrhosis and portal hypertension and portal gastropathy and esophageal varices, presented to the hospital because of GI bleeding. The patient started having coffee-ground emesis and alone at home. She had multiple episodes of coffee-ground emesis and she was passing black tarry stools at home and subsequently the emesis became bright red. She had another emesis in the emergency department with another bowel movement. She is an alcoholic however she hasn't drank since April 2017. No abdominal distention. She is a bit lethargic yet she is awake and alert and she is following commands and answering questions and there is no signs of any significant hepatic encephalopathy for now. In the emergency department, the patient was found to have a hemoglobin of 10.1. She was coagulopathic with an INR of 2.1 with a PT of 19 and a PTT of 30.8. He was afebrile. She was normotensive. Based on her ongoing symptoms of GI bleed, the patient was started on octreotide and IV Protonix and the patient got moved to the intensive care unit. Currently she is hemodynamically stable on no pressors. Her follow-up hemoglobin showed a dropped down to 9.6. She has undergone previous EGD and colonoscopy in July 2017 and the patient was found to have small distal esophageal varices and small gastric varices and portal gastropathy. The colonoscopy was within normal limits. No is a 50 and bending was done. At the same time the patient has some abnormal densities within the liver. The patient has undergone previous MRI of the liver and the patient was found to have 3 separate foci within the liver possibly related to an underlying hepatocellular carcinoma. The patient was also found to have minimal ascites and GE junction varices. Note that the patient's ESA was negative, antimitochondrial antibody was negative, anti-smooth muscle antibody was 30. Hepatitis profile is negative. The patient is seen again today 10/06/2017 in follow-up in the intensive care unit. She remains awake and alert in no acute distress. She denies any chest pain, palpitations, shortness of breath. She did have some dizziness while up. Systolic blood pressures in the 80s and 90s with mean arterial pressures in the 60s. No tachycardia. No tachypnea. She has had 2 small dark tarry stools last evening on yet this morning. She is status post 2 units of packed red blood cells. Hemoglobin this morning 10.4. INR 1.8. She remains on octreotide at 25 g per hour. Protonix 40 mg IV twice a day. D5.9 at 75 ML's per hour. She is nothing by mouth. The plan is for endoscopy today. Objective - Vital Signs Vital signs: Vital Signs Temp 98.3 F 10/06/17 04:00 Pulse 76 10/06/17 07:00 Resp 19 10/06/17 07:00 BP 95/52 10/06/17 07:00 Pulse Ox 94 L 10/06/17 07:00 Intake & Output 10/05/17 10/06/17 10/06/17 18:59 06:59 18:59 Intake Total 638.10 1858.246 175.2 Output Total 200 0 Balance 438.10 1858.246 175.2 Weight 76.204 kg 79 kg Intake: IV 963.6 175.2 Dextrose 5%-0.9% NaCl 1, 825 150 000 ml @ 75 mls/hr IV . [id number] [facility] Rx#:[id number] Octreotide 200 mcg In 138.6 25.2 Sodium Chloride 0.9% 100 ml @ 25 MCG/HR 12.62 mls/ hr IV .Q8H1M [facility] Rx#: [id number] Intake, IV Titration 378.10 274.646 Amount Dextrose 5%-0.45% NaCl 1, 40 000 ml @ 20 mls/hr IV . Q24H [facility] Rx#:[id number] Dextrose 5%-0.9% NaCl 1, 225 75 000 ml @ 75 mls/hr IV . [id number] [facility] Rx#:[id number] Octreotide 200 mcg In 63.10 199.646 Sodium Chloride 0.9% 100 ml @ 25 MCG/HR 12.62 mls/ hr IV .Q8H1M [facility] Rx#: [id number] Phytonadione 5 mg In 50 Sodium Chloride 0.9% 50 ml @ 100 mls/hr IVPB ONCE [facility] Rx#:[id number] Blood Product 260 620 Rc As-3 Unit 310 [id number] Rc As-3 Unit 0 310 [id number] Output: Urine 200 0 Other: # Voids 1 1 # Bowel Movements 1 - Exam Gen. appearance she is calm comfortable no acute distress. Head exam was generally normal. There was no scleral icterus or corneal arcus. Mucous membranes were moist. Neck was supple and without jugular venous distension, thyromegaly, or carotid bruits. Carotids were easily palpable bilaterally. There was no adenopathy. Lungs sounds are diminished bilaterally otherwise clear.Lungs were clear to auscultation and percussion, and with normal diaphragmatic excursion. No wheezes or rales were noted. Cardiac exam revealed the PMI to be normally situated and sized. The rhythm was regular and no extrasystoles were noted during several minutes of auscultation. The first and second heart sounds were normal and physiologic splitting of the second heart sound was noted. There were no murmurs, rubs, clicks, or gallops. Abdominal exam revealed normal bowel sounds. The abdomen was soft, non-tender, and without masses, organomegaly, or appreciable enlargement of the abdominal aorta. Examination of the extremities revealed easily palpable radial, femoral and pedal pulses. There was no cyanosis, clubbing and there is +1 pitting edema bilaterally Neurologically the patient is awake and alert. No signs of any hepatic encephalopathy at this point in time. She is following commands and answer precautions appropriately. Examination of the skin revealed no evidence of significant rashes, suspicious appearing nevi or other concerning lesions. Some rare facial telangiectasias can be seen. - Labs CBC & Chem 7: 10/06/17 04:42 10/06/17 04:42 Labs: Abnormal Lab Results - Last 24 Hours (Table) 10/05/17 10/05/17 10/05/17 Range/Units 08:29 08:29 08:29 WBC 12.8 H (3.8-10.6) k/uL RBC 2.54 L (3.80-5.40) m/uL Hgb 10.1 L (11.4-16.0) gm/dL Hct 31.0 L (34.0-46.0) % MCV 122.4 H (80.0-100.0) fL MCH 39.7 H (25.0-35.0) pg RDW 16.5 H (11.5-15.5) % Plt Count 112 L (150-450) k/uL Neutrophils # 10.9 H (1.3-7.7) k/uL Neutrophils # (Manual) (1.3-7.7) k/uL Lymphocytes # 0.9 L (1.0-4.8) k/uL Monocytes # (0-1.0) k/uL Monocytes # (Manual) (0-1.0) k/uL PT (9.0-12.0) sec INR (<1.2) Chloride (98-107) mmol/L BUN (7-17) mg/dL Glucose (74-99) mg/dL POC Glucose (mg/dL) (75-99) mg/dL Calcium (8.4-10.2) mg/dL Total Bilirubin (0.2-1.3) mg/dL AST (14-36) U/L Ammonia 69 H (<30) umol/L Total Creatine Kinase 142 H (30-135) U/L Total Protein (6.3-8.2) g/dL Albumin (3.5-5.0) g/dL Tumor Marker AFP (0.0-7.9) ng/mL Urine Appearance (Clear) Urine Protein (Negative) Urine Ketones (Negative) Urine Blood (Negative) Urine Nitrite (Negative) Ur Leukocyte Esterase (Negative) Urine RBC (0-5) /hpf Urine WBC (0-5) /hpf Urine WBC Clumps (None) /hpf Urine Mucus (None) /hpf Crossmatch 10/05/17 10/05/17 10/05/17 Range/Units 08:29 13:26 13:26 WBC 15.2 H (3.8-10.6) k/uL RBC 2.45 L (3.80-5.40) m/uL Hgb 9.6 L (11.4-16.0) gm/dL Hct 30.0 L (34.0-46.0) % MCV 122.5 H (80.0-100.0) fL MCH 39.4 H (25.0-35.0) pg RDW 16.9 H (11.5-15.5) % Plt Count 106 L (150-450) k/uL Neutrophils # 12.9 H (1.3-7.7) k/uL Neutrophils # (Manual) (1.3-7.7) k/uL Lymphocytes # (1.0-4.8) k/uL Monocytes # (0-1.0) k/uL Monocytes # (Manual) (0-1.0) k/uL PT (9.0-12.0) sec INR (<1.2) Chloride (98-107) mmol/L BUN (7-17) mg/dL Glucose (74-99) mg/dL POC Glucose (mg/dL) (75-99) mg/dL Calcium (8.4-10.2) mg/dL Total Bilirubin (0.2-1.3) mg/dL AST (14-36) U/L Ammonia (<30) umol/L Total Creatine Kinase (30-135) U/L Total Protein (6.3-8.2) g/dL Albumin (3.5-5.0) g/dL Tumor Marker AFP 8.8 H (0.0-7.9) ng/mL Urine Appearance (Clear) Urine Protein (Negative) Urine Ketones (Negative) Urine Blood (Negative) Urine Nitrite (Negative) Ur Leukocyte Esterase (Negative) Urine RBC (0-5) /hpf Urine WBC (0-5) /hpf Urine WBC Clumps (None) /hpf Urine Mucus (None) /hpf Crossmatch See Detail 10/05/17 10/05/17 10/05/17 Range/Units 13:44 17:45 20:21 WBC (3.8-10.6) k/uL RBC (3.80-5.40) m/uL Hgb (11.4-16.0) gm/dL Hct (34.0-46.0) % MCV (80.0-100.0) fL MCH (25.0-35.0) pg RDW (11.5-15.5) % Plt Count (150-450) k/uL Neutrophils # (1.3-7.7) k/uL Neutrophils # (Manual) (1.3-7.7) k/uL Lymphocytes # (1.0-4.8) k/uL Monocytes # (0-1.0) k/uL Monocytes # (Manual) (0-1.0) k/uL PT (9.0-12.0) sec INR (<1.2) Chloride (98-107) mmol/L BUN (7-17) mg/dL Glucose (74-99) mg/dL POC Glucose (mg/dL) 134 H 178 H (75-99) mg/dL Calcium (8.4-10.2) mg/dL Total Bilirubin (0.2-1.3) mg/dL AST (14-36) U/L Ammonia (<30) umol/L Total Creatine Kinase (30-135) U/L Total Protein (6.3-8.2) g/dL Albumin (3.5-5.0) g/dL Tumor Marker AFP (0.0-7.9) ng/mL Urine Appearance Cloudy H (Clear) Urine Protein Trace H (Negative) Urine Ketones 1+ H (Negative) Urine Blood Small H (Negative) Urine Nitrite Positive H (Negative) Ur Leukocyte Esterase Large H (Negative) Urine RBC 6 H (0-5) /hpf Urine WBC >182 H (0-5) /hpf Urine WBC Clumps Occasional H (None) /hpf Urine Mucus Rare H (None) /hpf Crossmatch 10/06/17 10/06/17 10/06/17 Range/Units 00:00 00:02 04:42 WBC 18.2 H 20.1 H (3.8-10.6) k/uL RBC 2.83 L 2.93 L (3.80-5.40) m/uL Hgb 10.2 L 10.4 L (11.4-16.0) gm/dL Hct 30.6 L 32.4 L (34.0-46.0) % MCV 107.9 H D 110.6 H (80.0-100.0) fL MCH 36.1 H 35.6 H (25.0-35.0) pg RDW 22.6 H 23.3 H (11.5-15.5) % Plt Count 93 L 94 L (150-450) k/uL Neutrophils # 13.9 H (1.3-7.7) k/uL Neutrophils # (Manual) 14.00 H (1.3-7.7) k/uL Lymphocytes # (1.0-4.8) k/uL Monocytes # 1.5 H (0-1.0) k/uL Monocytes # (Manual) 2.01 H (0-1.0) k/uL PT (9.0-12.0) sec INR (<1.2) Chloride (98-107) mmol/L BUN (7-17) mg/dL Glucose (74-99) mg/dL POC Glucose (mg/dL) 155 H (75-99) mg/dL Calcium (8.4-10.2) mg/dL Total Bilirubin (0.2-1.3) mg/dL AST (14-36) U/L Ammonia (<30) umol/L Total Creatine Kinase (30-135) U/L Total Protein (6.3-8.2) g/dL Albumin (3.5-5.0) g/dL Tumor Marker AFP (0.0-7.9) ng/mL Urine Appearance (Clear) Urine Protein (Negative) Urine Ketones (Negative) Urine Blood (Negative) Urine Nitrite (Negative) Ur Leukocyte Esterase (Negative) Urine RBC (0-5) /hpf Urine WBC (0-5) /hpf Urine WBC Clumps (None) /hpf Urine Mucus (None) /hpf Crossmatch 10/06/17 10/06/17 10/06/17 Range/Units 04:42 04:42 04:42 WBC (3.8-10.6) k/uL RBC (3.80-5.40) m/uL Hgb (11.4-16.0) gm/dL Hct (34.0-46.0) % MCV (80.0-100.0) fL MCH (25.0-35.0) pg RDW (11.5-15.5) % Plt Count (150-450) k/uL Neutrophils # (1.3-7.7) k/uL Neutrophils # (Manual) (1.3-7.7) k/uL Lymphocytes # (1.0-4.8) k/uL Monocytes # (0-1.0) k/uL Monocytes # (Manual) (0-1.0) k/uL PT 16.7 H (9.0-12.0) sec INR 1.8 H (<1.2) Chloride 109 H (98-107) mmol/L BUN 26 H (7-17) mg/dL Glucose 112 H (74-99) mg/dL POC Glucose (mg/dL) (75-99) mg/dL Calcium 7.6 L (8.4-10.2) mg/dL Total Bilirubin 5.1 H (0.2-1.3) mg/dL AST 69 H (14-36) U/L Ammonia 47 H (<30) umol/L Total Creatine Kinase (30-135) U/L Total Protein 5.2 L (6.3-8.2) g/dL Albumin 2.0 L (3.5-5.0) g/dL Tumor Marker AFP (0.0-7.9) ng/mL Urine Appearance (Clear) Urine Protein (Negative) Urine Ketones (Negative) Urine Blood (Negative) Urine Nitrite (Negative) Ur Leukocyte Esterase (Negative) Urine RBC (0-5) /hpf Urine WBC (0-5) /hpf Urine WBC Clumps (None) /hpf Urine Mucus (None) /hpf Crossmatch 10/06/17 Range/Units 08:03 WBC (3.8-10.6) k/uL RBC (3.80-5.40) m/uL Hgb (11.4-16.0) gm/dL Hct (34.0-46.0) % MCV (80.0-100.0) fL MCH (25.0-35.0) pg RDW (11.5-15.5) % Plt Count (150-450) k/uL Neutrophils # (1.3-7.7) k/uL Neutrophils # (Manual) (1.3-7.7) k/uL Lymphocytes # (1.0-4.8) k/uL Monocytes # (0-1.0) k/uL Monocytes # (Manual) (0-1.0) k/uL PT (9.0-12.0) sec INR (<1.2) Chloride (98-107) mmol/L BUN (7-17) mg/dL Glucose (74-99) mg/dL POC Glucose (mg/dL) 117 H (75-99) mg/dL Calcium (8.4-10.2) mg/dL Total Bilirubin (0.2-1.3) mg/dL AST (14-36) U/L Ammonia (<30) umol/L Total Creatine Kinase (30-135) U/L Total Protein (6.3-8.2) g/dL Albumin (3.5-5.0) g/dL Tumor Marker AFP (0.0-7.9) ng/mL Urine Appearance (Clear) Urine Protein (Negative) Urine Ketones (Negative) Urine Blood (Negative) Urine Nitrite (Negative) Ur Leukocyte Esterase (Negative) Urine RBC (0-5) /hpf Urine WBC (0-5) /hpf Urine WBC Clumps (None) /hpf Urine Mucus (None) /hpf Crossmatch Microbiology - Last 24 Hours (Table) 10/05/17 13:53 Urine Culture - Preliminary Urine,Voided Assessment and Plan Assessment: Assessment 1 acute GI bleeding. The patient is likely having an upper GI bleed related to portal hypertension secondary to liver cirrhosis. Hemodynamically stable currently on a combination of a Protonix and IV Sandostatin. Hemoglobin is at 10.4 Coagulation profile is abnormal based on underlying history of liver cirrhosis. No fresh frozen was given and the patient was given only 15 mg of vitamin K. INR today 1.8. 2 liver cirrhosis, alcoholic in nature 3 portal hypertension secondary liver cirrhosis 4 portal hypertensive gastropathy along with history of esophageal varices without previous banding. Please refer to the most recent EGD that was done a few months back. 5 abnormal liver lesions with mild elevation in the alpha-fetoprotein. Rule out development of hepatocellular carcinoma 6 history of alcoholism 7 blood loss anemia and hemoglobin up to 10.4. Status post 2 units of packed red blood cells. 8 borderline thrombocytopenia 9 questionable nodular density in the right suprahilar area on the chest x-ray that is to be investigated later stage 10 smoker 11 jaundice secondary to above 12 hypoproteinemia secondary to above 13 lower extremity edema Plan: The patient was seen and evaluated by Dr. Kelley. The plan is for is for EGD later today. She'll continue on octreotide and Protonix for now. She remains nothing by mouth. Hemoglobin currently stable at 10.4. INR 1.8. Possibly transfer out of the intensive care unit later today after EGD depending on the findings. We'll continue to follow make further recommendations based on her clinical status. I, the cosigning physician, performed a history & physical examination of the patient. Lungs sounds are clear. Maintaining good O2 saturations in the 90s on room air. I discussed the assessment and plan of care with my nurse practitioner, Ana Berumen. I attest to the above note as dictated by her.
--- NOTE | 2017-10-06 11:18 | P.PN ---
Subjective Progress Note Date: 10/06/17 Principal diagnosis: GI bleed Few black colored bowel movements this morning. Denies abdominal pain. No emesis. INR 1.8. Hemoglobin 10.4. Platelet 94,000. BUN 26 per creatinine 0.6. AFP 8.8. Ammonia improved 47. Objective - Vital Signs Vital signs: Vital Signs Temp 98.4 F 10/06/17 08:00 Pulse 59 L 10/06/17 10:00 Resp 15 10/06/17 10:00 BP 85/40 10/06/17 10:00 Pulse Ox 94 L 10/06/17 10:00 Intake & Output 10/05/17 10/06/17 10/06/17 18:59 06:59 18:59 Intake Total 638.10 1858.246 350.4 Output Total 200 0 Balance 438.10 1858.246 350.4 Weight 76.204 kg 79 kg Intake: IV 963.6 350.4 Dextrose 5%-0.9% NaCl 1, 825 300 000 ml @ 75 mls/hr IV . [id number] [facility] Rx#:[id number] Octreotide 200 mcg In 138.6 50.4 Sodium Chloride 0.9% 100 ml @ 25 MCG/HR 12.62 mls/ hr IV .Q8H1M [facility] Rx#: [id number] Intake, IV Titration 378.10 274.646 Amount Dextrose 5%-0.45% NaCl 1, 40 000 ml @ 20 mls/hr IV . Q24H [facility] Rx#:[id number] Dextrose 5%-0.9% NaCl 1, 225 75 000 ml @ 75 mls/hr IV . [id number] [facility] Rx#:[id number] Octreotide 200 mcg In 63.10 199.646 Sodium Chloride 0.9% 100 ml @ 25 MCG/HR 12.62 mls/ hr IV .Q8H1M [facility] Rx#: [id number] Phytonadione 5 mg In 50 Sodium Chloride 0.9% 50 ml @ 100 mls/hr IVPB ONCE [facility] Rx#:[id number] Blood Product 260 620 Rc As-3 Unit 310 [id number] Rc As-3 Unit 0 310 [id number] Output: Urine 200 0 Other: # Voids 1 1 1 # Bowel Movements 1 - Exam General appearance: The patient is alert, oriented, in no acute distress. HET: Head is normocephalic and atraumatic. Pupils are equal and reactive. Oropharynx is clear without lesions. Neck: Supple without lymphadenopathy. Trachea midline. Heart: S1 S2. Regular rate and rhythm. Lungs: No crackles or wheezes are heard. Abdomen: Soft, nontender, nondistended with bowel sounds. No peritoneal signs. No palpable organomegaly or masses. Extremities: Normal skin color and turgor. No cyanosis, rash, ulceration, clubbing, or edema. Radial and pedal pulses are 2/4 bilaterally. Neurological: No focal deficits. Strength and sensation are grossly intact. - Labs CBC & Chem 7: 10/06/17 04:42 10/06/17 04:42 Labs: Abnormal Lab Results - Last 24 Hours (Table) 10/05/17 10/05/17 10/05/17 Range/Units 08:29 13:26 13:26 WBC 15.2 H (3.8-10.6) k/uL RBC 2.45 L (3.80-5.40) m/uL Hgb 9.6 L (11.4-16.0) gm/dL Hct 30.0 L (34.0-46.0) % MCV 122.5 H (80.0-100.0) fL MCH 39.4 H (25.0-35.0) pg RDW 16.9 H (11.5-15.5) % Plt Count 106 L (150-450) k/uL Neutrophils # 12.9 H (1.3-7.7) k/uL Neutrophils # (Manual) (1.3-7.7) k/uL Monocytes # (0-1.0) k/uL Monocytes # (Manual) (0-1.0) k/uL PT (9.0-12.0) sec INR (<1.2) Chloride (98-107) mmol/L BUN (7-17) mg/dL Glucose (74-99) mg/dL POC Glucose (mg/dL) (75-99) mg/dL Calcium (8.4-10.2) mg/dL Total Bilirubin (0.2-1.3) mg/dL AST (14-36) U/L Ammonia (<30) umol/L Total Protein (6.3-8.2) g/dL Albumin (3.5-5.0) g/dL Tumor Marker AFP 8.8 H (0.0-7.9) ng/mL Urine Appearance (Clear) Urine Protein (Negative) Urine Ketones (Negative) Urine Blood (Negative) Urine Nitrite (Negative) Ur Leukocyte Esterase (Negative) Urine RBC (0-5) /hpf Urine WBC (0-5) /hpf Urine WBC Clumps (None) /hpf Urine Mucus (None) /hpf Crossmatch See Detail 10/05/17 10/05/17 10/05/17 Range/Units 13:44 17:45 20:21 WBC (3.8-10.6) k/uL RBC (3.80-5.40) m/uL Hgb (11.4-16.0) gm/dL Hct (34.0-46.0) % MCV (80.0-100.0) fL MCH (25.0-35.0) pg RDW (11.5-15.5) % Plt Count (150-450) k/uL Neutrophils # (1.3-7.7) k/uL Neutrophils # (Manual) (1.3-7.7) k/uL Monocytes # (0-1.0) k/uL Monocytes # (Manual) (0-1.0) k/uL PT (9.0-12.0) sec INR (<1.2) Chloride (98-107) mmol/L BUN (7-17) mg/dL Glucose (74-99) mg/dL POC Glucose (mg/dL) 134 H 178 H (75-99) mg/dL Calcium (8.4-10.2) mg/dL Total Bilirubin (0.2-1.3) mg/dL AST (14-36) U/L Ammonia (<30) umol/L Total Protein (6.3-8.2) g/dL Albumin (3.5-5.0) g/dL Tumor Marker AFP (0.0-7.9) ng/mL Urine Appearance Cloudy H (Clear) Urine Protein Trace H (Negative) Urine Ketones 1+ H (Negative) Urine Blood Small H (Negative) Urine Nitrite Positive H (Negative) Ur Leukocyte Esterase Large H (Negative) Urine RBC 6 H (0-5) /hpf Urine WBC >182 H (0-5) /hpf Urine WBC Clumps Occasional H (None) /hpf Urine Mucus Rare H (None) /hpf Crossmatch 10/06/17 10/06/17 10/06/17 Range/Units 00:00 00:02 04:42 WBC 18.2 H 20.1 H (3.8-10.6) k/uL RBC 2.83 L 2.93 L (3.80-5.40) m/uL Hgb 10.2 L 10.4 L (11.4-16.0) gm/dL Hct 30.6 L 32.4 L (34.0-46.0) % MCV 107.9 H D 110.6 H (80.0-100.0) fL MCH 36.1 H 35.6 H (25.0-35.0) pg RDW 22.6 H 23.3 H (11.5-15.5) % Plt Count 93 L 94 L (150-450) k/uL Neutrophils # 13.9 H (1.3-7.7) k/uL Neutrophils # (Manual) 14.00 H (1.3-7.7) k/uL Monocytes # 1.5 H (0-1.0) k/uL Monocytes # (Manual) 2.01 H (0-1.0) k/uL PT (9.0-12.0) sec INR (<1.2) Chloride (98-107) mmol/L BUN (7-17) mg/dL Glucose (74-99) mg/dL POC Glucose (mg/dL) 155 H (75-99) mg/dL Calcium (8.4-10.2) mg/dL Total Bilirubin (0.2-1.3) mg/dL AST (14-36) U/L Ammonia (<30) umol/L Total Protein (6.3-8.2) g/dL Albumin (3.5-5.0) g/dL Tumor Marker AFP (0.0-7.9) ng/mL Urine Appearance (Clear) Urine Protein (Negative) Urine Ketones (Negative) Urine Blood (Negative) Urine Nitrite (Negative) Ur Leukocyte Esterase (Negative) Urine RBC (0-5) /hpf Urine WBC (0-5) /hpf Urine WBC Clumps (None) /hpf Urine Mucus (None) /hpf Crossmatch 08/10/18 08/10/18 08/10/18 Range/Units 04:42 04:42 04:42 WBC (3.8-10.6) k/uL RBC (3.80-5.40) m/uL Hgb (11.4-16.0) gm/dL Hct (34.0-46.0) % MCV (80.0-100.0) fL MCH (25.0-35.0) pg RDW (11.5-15.5) % Plt Count (150-450) k/uL Neutrophils # (1.3-7.7) k/uL Neutrophils # (Manual) (1.3-7.7) k/uL Monocytes # (0-1.0) k/uL Monocytes # (Manual) (0-1.0) k/uL PT 16.7 H (9.0-12.0) sec INR 1.8 H (<1.2) Chloride 109 H (98-107) mmol/L BUN 26 H (7-17) mg/dL Glucose 112 H (74-99) mg/dL POC Glucose (mg/dL) (75-99) mg/dL Calcium 7.6 L (8.4-10.2) mg/dL Total Bilirubin 5.1 H (0.2-1.3) mg/dL AST 69 H (14-36) U/L Ammonia 47 H (<30) umol/L Total Protein 5.2 L (6.3-8.2) g/dL Albumin 2.0 L (3.5-5.0) g/dL Tumor Marker AFP (0.0-7.9) ng/mL Urine Appearance (Clear) Urine Protein (Negative) Urine Ketones (Negative) Urine Blood (Negative) Urine Nitrite (Negative) Ur Leukocyte Esterase (Negative) Urine RBC (0-5) /hpf Urine WBC (0-5) /hpf Urine WBC Clumps (None) /hpf Urine Mucus (None) /hpf Crossmatch 10/06/17 Range/Units 08:03 WBC (3.8-10.6) k/uL RBC (3.80-5.40) m/uL Hgb (11.4-16.0) gm/dL Hct (34.0-46.0) % MCV (80.0-100.0) fL MCH (25.0-35.0) pg RDW (11.5-15.5) % Plt Count (150-450) k/uL Neutrophils # (1.3-7.7) k/uL Neutrophils # (Manual) (1.3-7.7) k/uL Monocytes # (0-1.0) k/uL Monocytes # (Manual) (0-1.0) k/uL PT (9.0-12.0) sec INR (<1.2) Chloride (98-107) mmol/L BUN (7-17) mg/dL Glucose (74-99) mg/dL POC Glucose (mg/dL) 117 H (75-99) mg/dL Calcium (8.4-10.2) mg/dL Total Bilirubin (0.2-1.3) mg/dL AST (14-36) U/L Ammonia (<30) umol/L Total Protein (6.3-8.2) g/dL Albumin (3.5-5.0) g/dL Tumor Marker AFP (0.0-7.9) ng/mL Urine Appearance (Clear) Urine Protein (Negative) Urine Ketones (Negative) Urine Blood (Negative) Urine Nitrite (Negative) Ur Leukocyte Esterase (Negative) Urine RBC (0-5) /hpf Urine WBC (0-5) /hpf Urine WBC Clumps (None) /hpf Urine Mucus (None) /hpf Crossmatch Microbiology - Last 24 Hours (Table) 10/05/17 13:53 Urine Culture - Preliminary Urine,Voided Assessment and Plan (1) Acute upper GI bleed Narrative/Plan: Most likely a combination of portal gastropathy possible bleeding from distal esophageal varices gastric varices Current Visit: Yes Status: Acute Code(s): K92.2 - GASTROINTESTINAL HEMORRHAGE, UNSPECIFIED SNOMED Code(s): 54976389 (2) H/O ETOH abuse Current Visit: Yes Status: Acute Code(s): Z87.898 - PERSONAL HISTORY OF OTHER SPECIFIED CONDITIONS SNOMED Code(s): 131957014 (3) Portal hypertension Current Visit: Yes Status: Acute Code(s): K76.6 - PORTAL HYPERTENSION SNOMED Code(s): 16613910 (4) Portal hypertensive gastropathy Current Visit: Yes Status: Acute Code(s): K76.6 - PORTAL HYPERTENSION; K31.89 - OTHER DISEASES OF STOMACH AND DUODENUM SNOMED Code(s): 746390989 (5) Gastric varices Current Visit: Yes Status: Acute Code(s): I86.4 - GASTRIC VARICES SNOMED Code(s): 28059629 (6) Esophageal varices Current Visit: Yes Status: Acute Code(s): I85.00 - ESOPHAGEAL VARICES WITHOUT BLEEDING SNOMED Code(s): 77035268 (7) Anemia Current Visit: Yes Status: Acute Code(s): D64.9 - ANEMIA, UNSPECIFIED SNOMED Code(s): 427103562 (8) Acute blood loss anemia Current Visit: Yes Status: Acute Code(s): D62 - ACUTE POSTHEMORRHAGIC ANEMIA SNOMED Code(s): 838621767 (9) Coffee ground emesis Current Visit: Yes Status: Acute Code(s): K92.0 - HEMATEMESIS SNOMED Code( s): 171666318 (10) Melena Current Visit: Yes Status: Acute Code(s): K92.1 - MELENA SNOMED Code(s): 3842383 (11) Cirrhosis of liver Current Visit: Yes Status: Acute Code(s): K74.60 - UNSPECIFIED CIRRHOSIS OF LIVER SNOMED Code(s): 07611097 (12) Elevated AFP Current Visit: Yes Status: Acute Code(s): R77.2 - ABNORMALITY OF ALPHAFETOPROTEIN SNOMED Code(s): 674762677 (13) Elevated liver enzymes Current Visit: Yes Status: Acute Code(s): R74.8 - ABNORMAL LEVELS OF OTHER SERUM ENZYMES SNOMED Code(s): 103901594 (14) Hepatic encephalopathy Current Visit: Yes Status: Acute Code(s): K72.90 - HEPATIC FAILURE, UNSPECIFIED WITHOUT COMA SNOMED Code(s): 89289019 (15) Jaundice, hepatocellular Current Visit: Yes Status: Resolved Code(s): K76.89 - OTHER SPECIFIED DISEASES OF LIVER SNOMED Code(s): 25151220 (16) Abnormal MRI, liver Current Visit: Yes Status: Acute Code(s): R93.2 - ABNORMAL FINDINGS ON DX IMAGING OF LIVER AND BILIARY TRACT SNOMED Code(s): 894233604 (17) Coagulopathy Current Visit: Yes Status: Acute Code(s): D68.9 - COAGULATION DEFECT, UNSPECIFIED SNOMED Code(s): 35566503 Plan: 1. Continue Protonix Rocephin lactulose and Sandostatin. EGD evaluation this afternoon. We'll give 2 units of FFP prior to EGD for INR 1.9. CBC monitoring. We'll continue to follow. The roll former has discussed the risks, benefits and alternative therapies for the above-mentioned procedure and for both sedation/analgesia as well as necessary blood product administration, if indicated, as they pertain to this patient. The patient has indicated understanding and acceptance of the risks and procedures discussed. Assessment and plan a care discussed with Dr. Fernández
[2017-10-06 12:59] LABS: Anisocytosis Moderate; Basophils # (A) 0.1 k/uL (0-0.2); Basophils % (A) 1 %; Eosinophils # (A) 0.3 k/uL (0-0.7); Eosinophils % (A) 2 %; HCT 31.1 % (34.0-46.0); HGB 10.2 gm/dL (11.4-16.0); Hypochromasia Slight; Lymphocytes % (A) 20 %; MCHC 32.7 g/dL (31.0-37.0); Macrocytosis Marked; Mean Platelet Volume 8.2; Monocytes # (A) 1.3 k/uL (0-1.0); Monocytes % (A) 9 %; Neutrophils # (A) 9.8 k/uL (1.3-7.7); Neutrophils % (A) 66 %; Poikilocytosis Slight; RBC 2.83 m/uL (3.80-5.40); RDW 22.8 % (11.5-15.5); WBC 14.9 k/uL (3.8-10.6)
[2017-10-06 13:00] LABS: Platelet Count 76 k/uL (150-450)
[2017-10-06 13:35] LABS: Polychromasia Present; Target Cells Present
[2017-10-06 14:52] LABS: Glucose,Whole Blood 109 mg/dL (75-99)
[2017-10-06] MEDS ORDERED: IV FLUID CONTINUATION 1,000 ML IV ONE (15:40)
[2017-10-06] MEDS ORDERED: LIDOCAINE 1% INJ 10MG/ML (20 ML MDV) ONE ×2 (16:06)
[2017-10-06] MEDS ORDERED: KETAMINE 10 MG/ML 20 ML VIAL ONE ×2 (16:06)
[2017-10-06] MEDS ORDERED: PROPOFOL 10 MG/ML 20 ML VIAL IV ONE ×2 (16:06)
--- NOTE | 2017-10-06 16:41 | P.PCN ---
Date of Procedure: 10/06/17 Procedure(s) Performed: Procedure: 1. Esophagogastroduodenoscopy. Preoperative diagnosis: Cirrhosis of the liver and history of GI bleeding. Postoperative diagnosis: 1. Small distal esophageal varices, small gastric varices and portal gastropathy with no evidence of bleeding or stigmata of prior bleeding. Preparation: HalfLytely prep. Sedation: Was provided by anesthesia. Clinical history: The patient is a 67-year-old female with a history of alcohol liver disease, esophageal/gastric varices, portal gastropathy, portal hypertension, ascites, hepatic encephalopathy, presents with acute coffee- ground emesis and melena. Patient started to vomit the night prior to admission with multiple episodes of coffee-ground emesis and passed a black colored bowel movement the morning of. Patient denies active drinking, and her serum alcohol level was less than 10 upon admission. Last alcohol drink was April 2017. She was recently evaluated in the GI office a few months ago in regards to have mildly elevated alpha-fetoprotein level 9.2 and abnormal liver MRI. MRI liver reported 3 separate foci within the liver possible hepatic cellular carcinoma with minimal ascites and GE junction varices. She underwent EGD and colonoscopy by myself in July 2017 with findings of small distal esophageal varices, small gastric varices, portal gastropathy and a normal colon. Esophageal banding was not performed. Serologic workup for chronic liver disease has been completed most recently SMA slightly elevated at 30 but ESA and AMA negative. Ferritin 551. Iron 155. TIBC 242 and iron saturation 64%. Hepatitis screen nonreactive. Serum ammonia in June was 59 maintained on lactulose 10 g twice daily to titrate 3-4 bowel movements daily. She has been referred to [facility] hepatobiliary clinic and saw Dr. Red and a CT abdomen about a week ago at [facility]. Liver function tests have been elevated in the outpatient setting in June 2017 total bilirubin was 4.4. AST 87. ALT 50. AP 222. Hemoglobin 12 range. Labs this admission showed Hemoglobin 10.1. White count 12.8. MCV 122. Platelet 122. INR 2.1. Sodium 140. Potassium 4.6. BUN 22. Creatinine 0.5. Total bilirubin 5.7. AST 61. ALT 40. AP 125. Ammonia 69. Lipase 64. Other details are summarized in the history and physical and dictated consultations and progress notes. Procedure: With the patient on her left lateral decubitus position and after informed consent and adequate sedation, I passed the Olympus-GIF 160 video upper endoscope through the cricopharyngeus down the esophagus. The distal esophagus showed 2 small columns of varices without stigmata of bleeding. There was no evidence of esophagitis or complicated reflux disease. The endoscope was then passed into the stomach which was insufflated with air and inspected in detail including the retroflex view in the cardia. There was prominent submucosal vessels in the cardia consistent with small-sized gastric varices with no stigmata of prior bleeding. The stomach showed diffuse evidence of portal gastropathy with mottling and erythema of the mucosa but no erosions, ulcers or bleeding. Pyloric channel, duodenal bulb, post bulbar area and descending duodenum appeared within normal limits. No biopsies or any banding of varices were indicated then the endoscope was withdrawn. The patient tolerated the procedure well. Plan: The patient was reassured and I discussed with her family. This likely that she had a mucosal tear secondary to her dry heaving in the absence of any stigmata of bleeding and the size of her gastric and esophageal varices. Bleeding from gastric varices and portal gastropathy should be kept in mind. Will allow diet as tolerated and further plans will be made based on her course. We will review her computed tomography scan and make sure she continue with her follow-up at the hepatology clinic.
[2017-10-06 18:58] LABS: Glucose,Whole Blood 208 mg/dL (75-99)
[2017-10-06 20:48] LABS: Glucose,Whole Blood 156 mg/dL (75-99)
[2017-10-07 01:03] LABS: Glucose,Whole Blood 89 mg/dL (75-99)
[2017-10-07] MEDS: INSULIN ASPART 100 UNIT/ML 1 ML 10 ML VIAL SQ SCH ×5 (02:02→21:15)
[2017-10-07 07:08] LABS: Anisocytosis Moderate; Basophils # (A) 0.1 k/uL (0-0.2); Basophils % (A) 1 %; Eosinophils # (A) 0.3 k/uL (0-0.7); Eosinophils % (A) 5 %; HCT 27.5 % (34.0-46.0); Hypochromasia Slight; Lymphocytes # (A) 1.7 k/uL (1.0-4.8); Lymphocytes % (A) 25 %; MCH 36.9 pg (25.0-35.0); MCHC 32.8 g/dL (31.0-37.0); MCV 112.5 fL (80.0-100.0); Macrocytosis Marked; Mean Platelet Volume 7.6; Monocytes # (A) 0.8 k/uL (0-1.0); Monocytes % (A) 12 %; Neutrophils # (A) 3.8 k/uL (1.3-7.7); Neutrophils % (A) 54 %; RBC 2.44 m/uL (3.80-5.40); RDW 22.8 % (11.5-15.5); WBC 7.1 k/uL (3.8-10.6)
[2017-10-07 07:10] LABS: INR 1.6 (<1.2); Prothrombin Time 15.1 sec (9.0-12.0)
[2017-10-07 07:11] LABS: Platelet Count 76 k/uL (150-450)
[2017-10-07 07:16] LABS: ALT 50 U/L (9-52); AST 88 U/L (14-36); Albumin 1.9 g/dL (3.5-5.0); Alkaline Phosphatase 101 U/L (38-126); Anion Gap 0 mmol/L; Blood Urea Nitrogen 16 mg/dL (7-17); Calcium 7.3 mg/dL (8.4-10.2); Carbon Dioxide 29 mmol/L (22-30); Chloride 110 mmol/L (98-107); Glucose 93 mg/dL (74-99); Potassium 3.9 mmol/L (3.5-5.1); Sodium 139 mmol/L (137-145); Total Bilirubin 3.7 mg/dL (0.2-1.3); Total Protein 4.8 g/dL (6.3-8.2)
[2017-10-07 07:18] LABS: Glucose,Whole Blood 93 mg/dL (75-99)
[2017-10-07] MEDS: DEXTROSE 5%-0.9% NACL 1,000 ML IV SCH (07:36)
[2017-10-07] MEDS: cefTRIAXone IN SWFI 1,000 MG/10 ML SYRINGE IVP SCH (08:46)
[2017-10-07] MEDS: LACTULOSE 20 GM/30 ML CUP PO SCH ×3 (08:48→21:11)
[2017-10-07] MEDS: PANTOPRAZOLE 40 MG/10 ML VIAL IV SCH ×2 (08:49→21:11)
[2017-10-07] MEDS: PHYTONADIONE ORAL 5 MG/5 ML ORAL.SYRG PO SCH (09:24)
--- NOTE | 2017-10-07 09:37 | PN ---
PROGRESS NOTE DATE OF SERVICE: 10/07/2017 This 67-year-old woman was admitted with acute GI bleed as well as significant acute blood-loss anemia, had 2 unit transfusions. The patient was monitored in ICU. The patient underwent endoscopy by Dr. Fernández, which showed small , small gastric varices and portal gastropathy with no evidence of active bleeding or stigmata of prior bleeding. The patient has had with dry heaving and the patient has been closely monitored at this time. There is no history of fever, rigors. No history of headache, loss of consciousness or seizures. PAST MEDICAL HISTORY: Reviewed. REVIEW OF SYSTEMS: CARDIOVASCULAR: No angina. RESPIRATORY: As mentioned earlier. GI: As mentioned earlier. : No dysuria. NERVOUS SYSTEM: No numbness or weakness. CURRENT MEDICATIONS: Reviewed and include 1. Rocephin 1 g daily. 2. NovoLog daily. 3. Cephulac 20 mg. 4. Morphine sulfate. 5. Narcan. 6. Zofran. 7. Protonix. 8. Vitamin K. PHYSICAL EXAM: Patient is alert, oriented x3. Pulse 78, blood pressure 90/52, respiration 18, temperature 97.2, pulse ox 93% on room air. HEENT: Conjunctivae normal. Oral mucosa moist. NECK: No jugular venous distention. No carotid bruit. No lymph node enlargement. CARDIOVASCULAR: S1, S2. RESPIRATORY: Breath sounds diminished in the bases. A few rhonchi, no crackles. ABDOMEN: Soft, nontender. LEGS: No edema. NERVOUS SYSTEM: No focal deficits. LABS: WBC 18.4, hemoglobin 10.2, and INR is 1.8. Glucose 158 and albumin is 2. UA noted. The urine culture stool OP is positive. Urine culture negative so far. ASSESSMENT: 1. Acute upper gastrointestinal bleeding with possible bleeding from mucosal tear or from esophageal portal varices. 2. Status post EGD. 3. Portal gastropathy in the EGD. 4. Increased WBC. 5. Thrombocytopenia. 6. Urinary tract infection. 7. History of ETOH. 8. Coagulopathy secondary to chronic liver disease secondary to alcohol. 9. , possibly acute hepatitis, possibly secondary to ETOH. 10.History of gastroesophageal reflux disease. 11.History of syncope. 12.Bladder surgery. 13.History of hysterectomy. 14.History of anxiety. RECOMMENDATIONS AND DISCUSSION: I recommend to continue current management and symptomatic treatment. Continue with monitor hemoglobin closely. Proton pump inhibitors. Vitamin K. Empiric antibiotics. Repeat labs in the morning. Advance diet per Gastroenterology. Guarded prognosis because of multiple complex medical issues. Further recommendations to follow. MMODL / IJN: [id number] / MTDSocrates
[2017-10-07 12:01] LABS: Glucose,Whole Blood 113 mg/dL (75-99)
--- NOTE | 2017-10-07 12:19 | P.PN ---
Subjective Progress Note Date: 10/07/17 67-year-old here patient with known history of alcoholic liver cirrhosis and portal hypertension and portal gastropathy and esophageal varices, presented to the hospital because of GI bleeding. The patient started having coffee-ground emesis and alone at home. She had multiple episodes of coffee-ground emesis and she was passing black tarry stools at home and subsequently the emesis became bright red. She had another emesis in the emergency department with another bowel movement. She is an alcoholic however she hasn't drank since April 2017. No abdominal distention. She is a bit lethargic yet she is awake and alert and she is following commands and answering questions and there is no signs of any significant hepatic encephalopathy for now. In the emergency department, the patient was found to have a hemoglobin of 10.1. She was coagulopathic with an INR of 2.1 with a PT of 19 and a PTT of 30.8. He was afebrile. She was normotensive. Based on her ongoing symptoms of GI bleed, the patient was started on octreotide and IV Protonix and the patient got moved to the intensive care unit. Currently she is hemodynamically stable on no pressors. Her follow-up hemoglobin showed a dropped down to 9.6. She has undergone previous EGD and colonoscopy in July 2017 and the patient was found to have small distal esophageal varices and small gastric varices and portal gastropathy. The colonoscopy was within normal limits. No is a 50 and bending was done. At the same time the patient has some abnormal densities within the liver. The patient has undergone previous MRI of the liver and the patient was found to have 3 separate foci within the liver possibly related to an underlying hepatocellular carcinoma. The patient was also found to have minimal ascites and GE junction varices. Note that the patient's ESA was negative, antimitochondrial antibody was negative, anti-smooth muscle antibody was 30. Hepatitis profile is negative. The patient is seen again today 10/06/2017 in follow-up in the intensive care unit. She remains awake and alert in no acute distress. She denies any chest pain, palpitations, shortness of breath. She did have some dizziness while up. Systolic blood pressures in the 80s and 90s with mean arterial pressures in the 60s. No tachycardia. No tachypnea. She has had 2 small dark tarry stools last evening on yet this morning. She is status post 2 units of packed red blood cells. Hemoglobin this morning 10.4. INR 1.8. She remains on octreotide at 25 g per hour. Protonix 40 mg IV twice a day. D5.9 at 75 ML's per hour. She is nothing by mouth. The plan is for endoscopy today. On 10/07/2017 I'm seeing the patient for a follow-up. The patient is out of the intensive care unit. EGD was done and there is no significant bleeding from dysphagia varices that do not to be very small. The patient could have some mucosal tear at the level of the esophagus. Otherwise, no other significant abnormalities were noted. The patient is gradually advancing her diet as tolerated. No nausea. No vomiting. No abdominal pain. He was at 9.0. Rest of the electrodes are all within normal limits. Objective - Vital Signs Vital signs: Vital Signs Temp 98 F 10/07/17 06:38 Pulse 69 10/07/17 10:11 Resp 16 10/07/17 10:11 BP 108/55 10/07/17 06:38 Pulse Ox 93 L 10/07/17 06:38 Intake & Output 10/06/17 10/07/17 10/07/17 18:59 06:59 18:59 Intake Total 2933.475 825 240 Balance 2933.475 825 240 Intake: IV 1088.6 825 Dextrose 5%-0.9% NaCl 1, 900 825 000 ml @ 75 mls/hr IV . [id number] [facility] Rx#:[id number] Octreotide 200 mcg In 138.6 Sodium Chloride 0.9% 100 ml @ 25 MCG/HR 12.62 mls/ hr IV .Q8H1M [facility] Rx#: [id number] Intake, IV Titration 122.875 Amount Octreotide 200 mcg In 122.875 Sodium Chloride 0.9% 100 ml @ 25 MCG/HR 12.62 mls/ hr IV .Q8H1M [facility] Rx#: [id number] Oral 480 240 Blood Product 1242 Ffp 24 Cpd Unit 288 [id number] Ffp 24 Cpd Unit 333 [id number] Other: Voiding Method Toilet Toilet # Voids 1 - Exam - Exam Gen. appearance she is calm comfortable no acute distress. Head exam was generally normal. There was no scleral icterus or corneal arcus. Mucous membranes were moist. Neck was supple and without jugular venous distension, thyromegaly, or carotid bruits. Carotids were easily palpable bilaterally. There was no adenopathy. Lungs sounds are diminished bilaterally otherwise clear.Lungs were clear to auscultation and percussion, and with normal diaphragmatic excursion. No wheezes or rales were noted. Cardiac exam revealed the PMI to be normally situated and sized. The rhythm was regular and no extrasystoles were noted during several minutes of auscultation. The first and second heart sounds were normal and physiologic splitting of the second heart sound was noted. There were no murmurs, rubs, clicks, or gallops. Abdominal exam revealed normal bowel sounds. The abdomen was soft, non-tender, and without masses, organomegaly, or appreciable enlargement of the abdominal aorta. Examination of the extremities revealed easily palpable radial, femoral and pedal pulses. There was no cyanosis, clubbing and there is +1 pitting edema bilaterally Neurologically the patient is awake and alert. No signs of any hepatic encephalopathy at this point in time. She is following commands and answer precautions appropriately. Examination of the skin revealed no evidence of significant rashes, suspicious appearing nevi or other concerning lesions. Some rare facial telangiectasias can be seen. - Labs CBC & Chem 7: 10/07/17 06:48 10/07/17 06:48 Labs: Abnormal Lab Results - Last 24 Hours (Table) 10/06/17 10/06/17 10/06/17 Range/Units 12:19 14:50 18:56 WBC 14.9 H (3.8-10.6) k/uL RBC 2.83 L (3.80-5.40) m/uL Hgb 10.2 L (11.4-16.0) gm/dL Hct 31.1 L (34.0-46.0) % MCV 110.0 H (80.0-100.0) fL MCH 36.0 H (25.0-35.0) pg RDW 22.8 H (11.5-15.5) % Plt Count 76 L (150-450) k/uL Neutrophils # 9.8 H (1.3-7.7) k/uL Monocytes # 1.3 H (0-1.0) k/uL PT (9.0-12.0) sec INR (<1.2) Chloride (98-107) mmol/L POC Glucose (mg/dL) 109 H 208 H (75-99) mg/dL Calcium (8.4-10.2) mg/dL Total Bilirubin (0.2-1.3) mg/dL AST (14-36) U/L Ammonia (<30) umol/L Total Protein (6.3-8.2) g/dL Albumin (3.5-5.0) g/dL 10/06/17 10/07/17 10/07/17 Range/Units 20:46 06:48 06:48 WBC (3.8-10.6) k/uL RBC (3.80-5.40) m/uL Hgb (11.4-16.0) gm/dL Hct (34.0-46.0) % MCV (80.0-100.0) fL MCH (25.0-35.0) pg RDW (11.5-15.5) % Plt Count (150-450) k/uL Neutrophils # (1.3-7.7) k/uL Monocytes # (0-1.0) k/uL PT 15.1 H (9.0-12.0) sec INR 1.6 H (<1.2) Chloride 110 H (98-107) mmol/L POC Glucose (mg/dL) 156 H (75-99) mg/dL Calcium 7.3 L (8.4-10.2) mg/dL Total Bilirubin 3.7 H (0.2-1.3) mg/dL AST 88 H (14-36) U/L Ammonia (<30) umol/L Total Protein 4.8 L (6.3-8.2) g/dL Albumin 1.9 L (3.5-5.0) g/dL 10/07/17 10/07/17 10/07/17 Range/Units 06:48 06:48 12:00 WBC (3.8-10.6) k/uL RBC 2.44 L (3.80-5.40) m/uL Hgb 9.0 L (11.4-16.0) gm/dL Hct 27.5 L (34.0-46.0) % MCV 112.5 H (80.0-100.0) fL MCH 36.9 H (25.0-35.0) pg RDW 22.8 H (11.5-15.5) % Plt Count 76 L (150-450) k/uL Neutrophils # (1.3-7.7) k/uL Monocytes # (0-1.0) k/uL PT (9.0-12.0) sec INR (<1.2) Chloride (98-107) mmol/L POC Glucose (mg/dL) 113 H (75-99) mg/dL Calcium (8.4-10.2) mg/dL Total Bilirubin (0.2-1.3) mg/dL AST (14-36) U/L Ammonia 63 H (<30) umol/L Total Protein (6.3-8.2) g/dL Albumin (3.5-5.0) g/dL Microbiology - Last 24 Hours (Table) 10/05/17 13:53 Urine Culture - Final Urine,Voided 10/05/17 08:29 Blood Culture - Preliminary Blood No Growth after 24 hours Assessment and Plan Plan: Assessment 1 acute GI bleeding. The patient has no ongoing GI bleed. EGD was done and the findings were noted. The patient was found to have no active source of bleeding. Hemoglobin stable at 9.0. INR is at 1.6. 2 liver cirrhosis, alcoholic in nature 3 portal hypertension secondary liver cirrhosis 4 portal hypertensive gastropathy along with history of esophageal varices without previous banding. Please refer to the most recent EGD 5 abnormal liver lesions with mild elevation in the alpha-fetoprotein. Rule out development of hepatocellular carcinoma. Awaiting results of the CAT scan of the liver from [facility] 6 history of alcoholism 7 blood loss anemia and hemoglobin is down to 9.0 8 borderline thrombocytopenia 9 questionable nodular density in the right suprahilar area on the chest x-ray that is to be investigated later stage 10 smoker 11 jaundice secondary to above 12 hypoproteinemia secondary to above 13 lower extremity edema Plan Advance diet. We'll sign off the case. No need for any pulmonary critical care follow-up at this point in time. May suggest addition of beta blockers regarding her portal hypertension. Follow-up on the results of the CAT scan of the liver in regards to the possibility of a hepatocellular carcinoma.
--- NOTE | 2017-10-07 17:07 | PN ---
PROGRESS NOTE DATE OF SERVICE: 10/07/2017 This 67-year-old woman who was admitted with acute upper GI bleeding also thought to have mucosal tear from incessant vomiting. The patient had multiple transfusions. Hemoglobin is at 9 today. INR is 1.6. The patient is given vitamin K. Albumin is 1.9. The serum ammonia is 63. PAST MEDICAL HISTORY: Reviewed. REVIEW OF SYSTEMS: CARDIOVASCULAR SYSTEM: No angina. RESPIRATORY SYSTEM: As mentioned earlier. GI: As mentioned earlier. : No dysuria. NERVOUS SYSTEM: No numbness or weakness. MEDICATIONS: Current medications are reviewed and include: 1. Rocephin 1 gram IV daily. 2. Dextrose. 3. NovoLog. 4. Cephulac 20 grams p.o. t.i.d. 5. Morphine 4 mg p.r.n. 6. Narcan p.r.n. 7. Zofran. 8. Protonix 40 mg. 9. Vitamin K. PHYSICAL EXAMINATION: Patient is alert, oriented x2. Pulse is 69, blood pressure 108/55, respiration 16, temperature 98 degrees, pulse ox 98% on room air. HEENT: Conjunctivae normal. NECK: No jugular venous distention. CARDIOVASCULAR: S1 and S2 muffled. RESPIRATORY: Breath sounds diminished at the bases. Bilateral scattered rhonchi and crackles. ABDOMEN: Soft, obese, nontender. LEGS: No edema, no swelling. NERVOUS SYSTEM: No focal deficits. LABS: WBC 7.1, hemoglobin is 9. INR is 1.6. Albumin is 1.9. Other labs are noted. ASSESSMENT: 1. Acute upper gastrointestinal bleeding with possible bleeding from mucosal tear from esophageal or portal varices. 2. Status post EGD showing portal gastropathy and varices. 3. Hyperammonemia and hepatic encephalopathy, acute on chronic. 4. Increased WBC. 5. Thrombocytopenia. 6. Urinary tract infection. 7. History of EtOH. 8. Coagulopathy secondary to chronic liver disease secondary to alcohol. 9. Acute hepatitis possibly secondary to ETOH. 10.History of gastroesophageal reflux disease. 11.History of syncope. 12.History of bladder surgery. 13.History of hysterectomy. 14.History of anxiety. RECOMMENDATIONS AND DISCUSSION: Recommend to continue current medications. Continue with symptomatic treatment. Otherwise at this time I recommend to continue with Cephulac. Continue with monitor labs, DVT prophylaxis, broad-spectrum IV antibiotics. I would also recommend multivitamins also supplementation. Increase ambulation. The prognosis guarded because of multiple complex medical issues. Further recommendations to follow. MMODL / IJN: [id number] /
[2017-10-07 18:03] LABS: Glucose,Whole Blood 130 mg/dL (75-99)
[2017-10-07 19:57] LABS: Glucose,Whole Blood 130 mg/dL (75-99)
[2017-10-08] MEDS: DEXTROSE 5%-0.9% NACL 1,000 ML IV SCH ×2 (03:18→08:10)
[2017-10-08] MEDS: INSULIN ASPART 100 UNIT/ML 1 ML 10 ML VIAL SQ SCH ×5 (03:20→20:31)
[2017-10-08 06:55] LABS: Glucose,Whole Blood 98 mg/dL (75-99)
[2017-10-08 07:08] LABS: INR 1.8 (<1.2); Prothrombin Time 16.2 sec (9.0-12.0)
[2017-10-08 07:10] LABS: Anisocytosis Moderate; Basophils % (A) 1 %; Eosinophils # (A) 0.3 k/uL (0-0.7); Eosinophils % (A) 4 %; HGB 9.2 gm/dL (11.4-16.0); Lymphocytes # (A) 2.5 k/uL (1.0-4.8); Lymphocytes % (A) 32 %; MCH 36.9 pg (25.0-35.0); MCHC 32.7 g/dL (31.0-37.0); MCV 112.8 fL (80.0-100.0); Macrocytosis Marked; Mean Platelet Volume 8.4; Monocytes % (A) 13 %; Neutrophils # (A) 3.9 k/uL (1.3-7.7); Neutrophils % (A) 49 %; RBC 2.48 m/uL (3.80-5.40); RDW 22.4 % (11.5-15.5)
[2017-10-08 07:13] LABS: Platelet Count 70 k/uL (150-450)
[2017-10-08 07:17] LABS: ALT 50 U/L (9-52); AST 85 U/L (14-36); Albumin 1.9 g/dL (3.5-5.0); Alkaline Phosphatase 109 U/L (38-126); Anion Gap 1 mmol/L; Blood Urea Nitrogen 10 mg/dL (7-17); Calcium 7.2 mg/dL (8.4-10.2); Carbon Dioxide 26 mmol/L (22-30); Chloride 110 mmol/L (98-107); Glucose 98 mg/dL (74-99); Potassium 3.5 mmol/L (3.5-5.1); Sodium 137 mmol/L (137-145); Total Bilirubin 4.6 mg/dL (0.2-1.3); Total Protein 4.9 g/dL (6.3-8.2)
[2017-10-08] MEDS: LACTULOSE 20 GM/30 ML CUP PO SCH ×3 (08:09→20:07)
[2017-10-08] MEDS: cefTRIAXone IN SWFI 1,000 MG/10 ML SYRINGE IVP SCH (08:09)
[2017-10-08] MEDS: MULTIVITAMINS, THERA 1 EACH TAB PO SCH (08:09)
[2017-10-08] MEDS: THIAMINE 100 MG TAB PO SCH (08:09)
[2017-10-08] MEDS: PANTOPRAZOLE 40 MG/10 ML VIAL IV SCH ×2 (08:09→20:07)
[2017-10-08] MEDS: FOLIC ACID 1 MG TAB PO SCH (08:09)
[2017-10-08 08:21] LABS: Polychromasia Present
[2017-10-08] MEDS: PHYTONADIONE ORAL 5 MG/5 ML ORAL.SYRG PO SCH (08:49)
[2017-10-08 12:03] LABS: Glucose,Whole Blood 122 mg/dL (75-99)
--- NOTE | 2017-10-08 15:23 | PN ---
PROGRESS NOTE DATE OF SERVICE: 10/08/2017. This 67-year-old woman who was admitted with acute upper gastrointestinal bleeding with possible bleeding from mucosal tear is being closely monitored. Patient also had features of hepatic encephalopathy also. The patient is taking lactulose currently and ammonia has come down to 44 at this time. The patient is closely monitored. No chest pain. No palpitations. PHYSICAL EXAM: Alert and oriented x3. Pulse 74, blood pressure 97/52, respirations 16, temperature 98.4, pulse ox 94% on room air. HEENT: Conjunctivae normal. Oral mucosa moist. NECK: No jugular venous distention. No carotid bruit. No lymph node enlargement. CARDIOVASCULAR: S1, S2. No S3, no S4. RESPIRATORY: Breath sounds diminished in the bases. No rhonchi. No crackles. ABDOMEN: Soft, obese, nontender. No mass palpable. LEGS: No edema, no swelling. NERVOUS SYSTEM: No focal deficits. LAB STUDIES: At this time shows WBC 8, hemoglobin is 9.2, and platelets 70 and INR is 1.8. Total bilirubin is 4.6. ASSESSMENT: 1. Acute upper gastrointestinal bleeding with possible bleeding from the mucosal tear esophageal and portal varices. 2. Status post EGD showing portal gastropathy and varices. 3. Hyperammonemia, hepatic encephalopathy, acute on chronic. 4. Increased WBC. 5. Thrombocytopenia. 6. Urinary tract infection. 7. History of ETOH. 8. Coagulopathy secondary to chronic liver disease secondary to alcohol. 9. Acute hepatitis secondary to ETOH. 10.History of gastroesophageal reflux disease. 11.History of syncope. 12.History of bladder surgery. 13.History of hysterectomy. 14.History of anxiety. RECOMMENDATIONS AND DISCUSSION: I recommend to continue current management and symptomatic treatment. Repeat labs. Monitor closely. Otherwise, increase ambulation. Further recommendations to follow. Will monitor hemoglobin closely. MMODL / IJN: [id number] /
[2017-10-08 17:01] LABS: Glucose,Whole Blood 148 mg/dL (75-99)
[2017-10-08 20:27] LABS: Glucose,Whole Blood 144 mg/dL (75-99)
[2017-10-09 00:55] VITALS: RESP 16
[2017-10-09] MEDS: INSULIN ASPART 100 UNIT/ML 1 ML 10 ML VIAL SQ SCH ×3 (03:20→12:00)
[2017-10-09] MEDS: DEXTROSE 5%-0.9% NACL 1,000 ML IV SCH (03:50)
[2017-10-09 06:58] LABS: Glucose,Whole Blood 97 mg/dL (75-99)
[2017-10-09 07:53] LABS: Anisocytosis Moderate; HCT 28.9 % (34.0-46.0); HGB 9.5 gm/dL (11.4-16.0); Hypochromasia Slight; MCH 36.7 pg (25.0-35.0); MCHC 32.9 g/dL (31.0-37.0); MCV 111.6 fL (80.0-100.0); Macrocytosis Marked; Mean Platelet Volume 8.8; RBC 2.58 m/uL (3.80-5.40); RDW 22.3 % (11.5-15.5); WBC 8.5 k/uL (3.8-10.6)
[2017-10-09 07:54] LABS: Platelet Count 67 k/uL (150-450)
[2017-10-09 08:26] LABS: Eosinophils # (M) 0.43 k/uL (0-0.7); Lymphocytes # (M) 1.79 k/uL (1.0-4.8); Neutrophils % (M) 67 %; Nucleated Red Blood Cells 0 /100 WBC (0-0); Poikilocytosis (M) Present; Polychromasia Present; Target Cells Present; Total Cells Counted 100
[2017-10-09] MEDS: LACTULOSE 20 GM/30 ML CUP PO SCH (08:45)
[2017-10-09] MEDS: MULTIVITAMINS, THERA 1 EACH TAB PO SCH (08:46)
[2017-10-09] MEDS: THIAMINE 100 MG TAB PO SCH (08:46)
[2017-10-09] MEDS: PANTOPRAZOLE 40 MG/10 ML VIAL IV SCH (08:46)
[2017-10-09] MEDS: FOLIC ACID 1 MG TAB PO SCH (08:46)
[2017-10-09] MEDS: PHYTONADIONE ORAL 5 MG/5 ML ORAL.SYRG PO SCH (09:43)
[2017-10-09] MEDS: cefTRIAXone IN SWFI 1,000 MG/10 ML SYRINGE IVP SCH (09:43)
[2017-10-09 11:22] LABS: Glucose,Whole Blood 124 mg/dL (75-99)
[2017-10-09 11:31] VITALS: BMI 30.8
[2017-10-09 12:12] LABS: INR 1.7 (<1.2)
[2017-10-09 15:36] VITALS: BP 109/66; PULSE 70; TEMP 99
--- NOTE | 2017-10-09 20:03 | DS ---
DISCHARGE SUMMARY DATE OF SERVICE: 10/09/2017 FINAL DIAGNOSES: 1. Acute upper gastrointestinal bleeding with possible bleeding from the mucosal tear with esophageal and portal varices. 2. Status post EGD showing portal gastropathy and varices. 3. Hyperammonemia, hepatic encephalopathy, acute on chronic. 4. Increased WBC. 5. Thrombocytopenia. 6. Urinary tract infection. 7. History of EtOH. 8. Coagulopathy secondary to chronic liver disease secondary to alcohol. 9. Acute hepatitis secondary to ETOH. 10.History of gastroesophageal reflux disease. 11.History of syncope. 12.History of bladder surgery. 13.History of hysterectomy. 14.History of anxiety. DISCHARGE DISPOSITION: The patient will be discharged in stable condition with guarded prognosis. Total time taken 35 minutes. HISTORY OF PRESENT ILLNESS: This 67-year-old woman was admitted with acute GI bleed. The patient was treated symptomatically. The patient had EGD. The patient had transfusions. Ammonia improved significantly with lactulose. On exam, vital signs are stable. CARDIOVASCULAR: S1, S2. ABDOMEN: Soft. NERVOUS SYSTEM: No focal deficit. Hemoglobin is 9.5 at this time. The patient's INR is 1.7. The patient will be discharged in stable condition with guarded. Alcohol cessation advice also was given. DISCHARGE ADVICE AND MEDICATIONS: Diet is cardiac. Activity limited until followup. Follow up with Dr. Reynolds in 2 to 3 days. Follow with Gastroenterology as advised. MEDICATIONS ARE FOLLOWS:: 1. Lasix 20 mg p.o. b.i.d. 2. Multivitamins 1 p.o. daily. 3. Aldactone 25 mg b.i.d. 4. Ceftin 500 mg p.o. b.i.d. for 4 days. 5. Folic acid 1 mg daily. 6. Lactulose 20 g t.i.d. p.r.n. 7. Protonix 40 mg daily. 8. Vitamin K 5 mg p.o. daily. 9. Thiamine 100 mg p.o. daily. Follow up with Dr. Reynolds and Dr. Fernández as advised. PT/INR. MMODL / IJN: [id number] /
== END 2017-10-09 18:15 | disposition home or self-care (01) | DRG 432 ==
LOC: EC 08:16 → 6ICU 10:04 → 5MS5E 10-06 21:17 → 3SUR 10-07 16:51
PROVIDERS: ADMIT Hospitalist; ATTEND Hospitalist
PROC: 30233N1 Transfusion of Nonautologous Red Blood Cells into Peripheral Vein, Percutaneous Approach (ICD-10-PCS; 2017-10-05)
PROC: 30233K1 Transfusion of Nonautologous Frozen Plasma into Peripheral Vein, Percutaneous Approach (ICD-10-PCS; 2017-10-06)
PROC: 0DJ08ZZ Inspection of Upper Intestinal Tract, Via Natural or Artificial Opening Endoscopic (ICD-10-PCS; principal; 2017-10-06 09:25)
DX: K70.30 Alcoholic cirrhosis of liver without ascites (principal); K22.6 Gastro-esophageal laceration-hemorrhage syndrome; I85.11 Secondary esophageal varices with bleeding; N39.0 Urinary tract infection, site not specified; D68.4 Acquired coagulation factor deficiency; D62 Acute posthemorrhagic anemia; K76.6 Portal hypertension; K72.90 Hepatic failure, unspecified without coma; I86.4 Gastric varices; R77.2 Abnormality of alphafetoprotein; K21.9 Gastro-esophageal reflux disease without esophagitis; K31.89 Other diseases of stomach and duodenum; F41.9 Anxiety disorder, unspecified; K70.10 Alcoholic hepatitis without ascites; F10.20 Alcohol dependence, uncomplicated; D69.6 Thrombocytopenia, unspecified; E77.8 Other disorders of glycoprotein metabolism; F17.210 Nicotine dependence, cigarettes, uncomplicated; Z90.710 Acquired absence of both cervix and uterus; Z79.899 Other long term (current) drug therapy; Z85.038 Personal history of other malignant neoplasm of large intestine; Z71.41 Alcohol abuse counseling and surveillance of alcoholic; Z80.0 Family history of malignant neoplasm of digestive organs
CPT/HCPCS: 36415; 43235; 71045; 74018; 80053; 80320; 81001; 82105; 82140; 82272; 82550; 82553; 83036; 83690; 83735; 84484; 85025; 85610; 85730; 86850; 86900; 86901; 86920; 87040; 87086; 93005; 96361; 96365; 96374; 96375; 99291